=== PATIENT | female | born 1975 | race Caucasian/White ===

== ENCOUNTER → 2021-08-07 12:13 | Outpatient (CLI) | payer BC, SELFPAY ==
[2021-08-08 19:23] LABS: Alanine Aminotransferase 25 IU/L (<35); Albumin 4.2 g/dL (3.5-5.0); Albumin Globulin Ratio 1.4 (1.0-2.8); Alkaline Phosphatase 89 U/L (38-126); Aspartate Aminotransferase 29 IU/L (14-36); BUN Creatinine Ratio 21.3 (6-22); Bilirubin Total 0.4 mg/dL (0.2-1.3); Blood Urea Nitrogen 13 mg/dL (7-17); Calcium 9.8 mg/dL (8.4-10.2); Carbon Dioxide 29 mmol/L (22-32); Chloride 103 mmol/L (98-107); Cholesterol 170 mg/dL (140-199); Estimated Glomerular Filt Rate > 60.0 mL/min (>60); Globulin 3.1 g/dL (1.7-4.1); Glucose 88 mg/dL (70-100); HDL Cholesterol 36 mg/dL (40-60); HEMOLYSIS 16 (0-50); LDL Cholesterol Calculated 105 mg/dL (<100); Sodium 141 mmol/L (137-145); Total Protein 7.3 g/dL (6.3-8.2); Triglycerides 146 mg/dL (35-150)
[2021-08-08 19:45] LABS: Add Manual Diff / Slide Review NO; Basophils Absolute Auto 0 /uL (0-100); Basophils Percent Auto 0.2 % (0-2); Eosinophils Absolute Auto 200 /uL (0-450); Hematocrit 40.2 % (36-46); Hemoglobin 13.4 g/dL (12.0-16.0); Lymphocytes Absolute Auto 2200 /uL (1100-4500); Lymphocytes Percent Auto 26.6 % (25-40); Mean Corpuscular HGB Conc 33.3 % (30-36); Mean Corpuscular Hemoglobin 30.7 PG (26-34); Monocytes Absolute Auto 700 /uL (0-900); Monocytes Percent Auto 8.1 % (3-14); Neutrophils Absolute Auto 5200 /uL (1500-7000); Neutrophils Percent Auto 62.1 % (50-75); Platelet Count 374 X10^3/uL (150-400); Red Blood Cell Count 4.37 X10^6/uL (4.0-5.2); Red Cell Distribution Width 14.1 % (11.6-14.8); White Blood Cell Count 8.4 X10^3/uL (4.5-11.0)
[2021-08-08 19:56] LABS: TSH w/ Reflex to FT4 < 0.02 uIU/mL (0.47-4.68)
[2021-08-08 20:13] LABS: Hemoglobin A1C% w Est Avg Glu 5.3 % (4.0-6.0)
[2021-08-08 20:28] LABS: Free T4, Direct Thyroxine 1.85 ng/dL (0.78-2.19)
== END ==
PROVIDERS: PCP Physician Assistant; Visit Provider Physician Assistant
DX: E03.9 Hypothyroidism, unspecified (principal); I10 Essential (primary) hypertension; R73.03 Prediabetes
CPT/HCPCS: 80053; 80061; 83036; 84439; 84443; 85025

== ENCOUNTER → 2022-06-27 11:25 | Outpatient (CLI) | payer OTHER, MEDICAID, SELFPAY ==
[2022-06-27 20:20] LABS: BUN Creatinine Ratio 24.6 (6-22); Blood Urea Nitrogen 16 mg/dL (7-17); Calcium 9.1 mg/dL (8.4-10.2); Carbon Dioxide 27 mmol/L (22-32); Chloride 103 mmol/L (98-107); Cholesterol 182 mg/dL (140-199); Estimated Glomerular Filt Rate > 60 mL/min (>60); Glucose 116 mg/dL (70-100); HDL Cholesterol 42 mg/dL (40-60); HEMOLYSIS < 15 (0-50); LDL Cholesterol Calculated 110 mg/dL (<100); Potassium 4.1 mmol/L (3.4-5.1); Sodium 141 mmol/L (137-145); Triglycerides 149 mg/dL (35-150)
[2022-06-27 20:31] LABS: Hemoglobin A1C% w Est Avg Glu 5.7 % (4.0-6.0)
[2022-06-27 20:46] LABS: Creatinine Urine Random 86.5 mg/dL
[2022-06-27 20:52] LABS: Microalbumi Creatinin Ratio Ur 76.3 ug/mg CR (<30); Microalbumin Urine Random 6.6 mg/dL (0-1.6); TSH w/ Reflex to FT4 7.18 uIU/mL (0.47-4.68)
== END ==
PROVIDERS: PCP Family Medicine; Visit Provider Family Medicine
DX: E03.9 Hypothyroidism, unspecified (principal); E11.9 Type 2 diabetes mellitus without complications; E78.2 Mixed hyperlipidemia; F32.9 Major depressive disorder, single episode, unspecified; I10 Essential (primary) hypertension
CPT/HCPCS: 80048; 80061; 82043; 82570; 83036; 84439; 84443

== ENCOUNTER → 2022-09-13 12:21 | Outpatient (ROUT) | payer OTHER, MEDICAID, SELFPAY ==
[2022-09-13 12:42] LABS: COVID19 -Nasal RAPID Negative (Negative)
== END ==
PROVIDERS: Surgery; PCP Family Medicine; Visit Provider Physician Assistant
DX: Z01.812 Encounter for preprocedural laboratory examination (principal); Z20.822 Contact with and (suspected) exposure to COVID-19
CPT/HCPCS: 87635

== ENCOUNTER → 2022-09-13 15:27 | Outpatient (CLI) | payer OTHER, MEDICAID, SELFPAY ==
--- NOTE | 2022-09-13 15:28 | DI.MG.S_ITS ---
BILATERAL DIGITAL SCREENING MAMMOGRAM 3D/2D WITH CAD: 09/13/2022 CLINICAL: Routine screening. Comparison is made to exams dated: 05/26/2019 mammogram, 08/22/2016 mammogram, and 11/05/2014 mammogram - outside location. Both breasts are almost entirely fatty (category a/<25% glandular tissue). Current study was also evaluated with a Computer Aided Detection (CAD) system. There is a benign area of fat necrosis in the left breast. There also are benign post operative findings in both breasts. No significant masses, calcifications, or other findings are seen in either breast. There has been no significant interval change. IMPRESSION: BENIGN There is no mammographic evidence of malignancy. A 1 year screening mammogram is recommended. Based on the Tyrer Cuzick model (a risk assessment model) the patient's lifetime risk is 6.0% and her 10 year risk is 1.3%. According to the ACR, ACS, and NCCN guidelines, an annual breast MRI exam along with mammogram is recommended if the patient's lifetime risk is 20% or greater. This exam was interpreted at Station ID: [id number]. NOTE: For mammograms, a report in lay terms will be sent to the patient. Approximately 15% of breast malignancies will not be visualized mammographically. In the management of a palpable breast mass, a negative mammogram must not discourage biopsy of a clinically suspicious lesion. Electronically Signed By: Heather hutchinson/sulma:09/14/2022 11:48:13 letter sent: Normal Exam ACR BI-RADS Category 2: Benign Finding(s) 3342F
== END ==
PROVIDERS: PCP Family Medicine; Referring Provider Family Medicine; Visit Provider Family Medicine
DX: Z12.31 Encounter for screening mammogram for malignant neoplasm of breast (principal); Z20.822 Contact with and (suspected) exposure to COVID-19
CPT/HCPCS: 77063; 77067; 87635; C9803

== ENCOUNTER 2022-09-14 14:25 | Day surgery (SDC) | payer OTHER, MEDICAID, SELFPAY ==
[2022-09-14 14:40] VITALS: BP 170/93; PULSE 86; RESP 14; TEMP 37; O2SAT 98; BMI 41.1
[2022-09-14] MEDS: LACTATED RINGERS 1,000 ML 42 ML IV (14:49)
--- NOTE | 2022-09-14 16:27 | P.HP_ITS ---
History of Present Illness History of Present Illness Chief complaint: SCREENING COLONOSCOPY Narrative: Ms. Babb presents today for a screening colonoscopy. She has never had 1 before. She states she was told by her dad that it was ?really important for her to have 1. She thinks that means that he has had multiple polyps in the past additionally she knows that her sisters have had some ?things? on her there colonoscopies she is really not sure of the specifics. She is had no symptoms of bleeding changes in bowel habits that are concerning. She has had a C- section gallbladder surgery and a tubal ligation. She has diabetes Patient History Medical History (Updated 09/11/22 @ 20:32 by Basil Bates MD) Depression Thoracic back pain Surgical History (Updated 02/09/22 @ 07:33 by Basil Bates MD) History of delivery History of cholecystectomy History of meniscectomy of right knee Family & Social History Social History: household members spouse Tobacco & Substance use: Tobacco type smokeless tobacco Smoking Status Current some day smoker alcohol intake never Substance Use Type does not use Meds Home Medications and Allergies Home Medications Medication Instructions Recorded Confirmed Type naproxen 500 mg tablet 500 mg PO BID PRN pain #60 tabs 08/07/21 09/14/22 Rx duloxetine 60 mg capsule,delayed 60 mg PO BID #180 caps 06/27/22 09/14/22 Rx release atorvastatin 20 mg tablet 20 mg PO BEDTIME #90 tabs 06/28/22 09/14/22 Rx levothyroxine 125 mcg capsule 125 mcg PO DAILY #90 caps 06/28/22 09/14/22 Rx lisinopril 20 1 tab PO DAILY #30 tabs 08/02/22 09/14/22 Rx mg-hydrochlorothiazide 12.5 mg tablet tirzepatide 10 mg/0.5 mL 10 mg (0.5 mL) SUBCUT QWEEK #2 mL 08/18/22 09/14/22 Rx subcutaneous pen injector metformin 500 mg tablet 500 mg PO BID 09/14/22 09/14/22 History Allergies Allergy/AdvReac Type Severity Reaction Status Date / Time No Known Drug Allergies Allergy Verified 09/14/22 14:33 Exam Vital Signs (past 8 hours): - 09/14/22 14:40 Temperature 98.6 F Pulse Rate 86 Respiratory Rate 14 Blood Pressure 170/93 H Pulse Oximetry 98 Oxygen Delivery Method Room Air Oxygen Flow Rate 0 Oxygen Delivery Method Room Air Oxygen Flow Rate 0 Const General: cooperative, healthy appearing and comfortable Nutritional Appearance: obese HENMT Head: normal to inspection Eyes General: appearance normal, both eyes and all related structures Resp Effort & Inspection: normal respiratory effort and able to speak in complete sentences Cardio Pulses: radial pulses present GI Palpation: soft and No tender Assessment & Plan Assessment and plan (1) Colon cancer screening: Status: Acute Assessment & Plan narrative: I discussed the risks benefits and alternatives of a screening colonoscopy including but not limited to inability to complete the exam and perforation of the colon Ms. Anaya understands and would like to proceed. Time Spent With Patient Critical Care time: I spent a total of [] minutes of critical care time on this patient's care today; this time is exclusive of procedural time.
--- NOTE | 2022-09-14 17:08 | PM.OP.COLON ---
Procedure & Clinicians Study performed: Colonoscopy Same procedure as scheduled: Yes Indications: Screening Surgeon: Suki Corral Procedure Notes Procedure in detail: Patient was taken to the endoscopy suite and placed in left lateral decubitus position. A time-out. Monitored anesthetic care was provided. A digital rectal exam was performed the colonoscope was introduced into the anal canal and advanced through the colon to the cecum pressure maneuver was required to enter into cecum. Photograph was taken of the appendiceal orifice the scope was then withdrawn slowly throughout the colon no mucosal abnormalities were seen withdrawal time was 12 minutes. In the absence of any family history of colon cancer or the development of any alarming symptoms follow-up may be 10 years
[2022-09-14 17:09] VITALS: BP 123/72; PULSE 79; RESP 21; TEMP 36.4; O2SAT 99
[2022-09-14 17:13] VITALS: BP 126/76; PULSE 78; RESP 13; O2SAT 100
[2022-09-14 17:21] VITALS: BP 142/86; PULSE 79; RESP 22; O2SAT 100
[2022-09-14 17:25] VITALS: BP 138/86; PULSE 72; RESP 13; O2SAT 100
[2022-09-14 17:27] VITALS: BP 125/73; PULSE 73; RESP 14; TEMP 36.4; O2SAT 100
== END 2022-09-14 17:45 | disposition home or self-care (01) ==
PROVIDERS: PCP Family Medicine; Referring Provider Surgery; Visit Provider Surgery
PROC: 0DJD8ZZ Inspection of Lower Intestinal Tract, Via Natural or Artificial Opening Endoscopic (ICD-10-PCS; CPT 45378; principal; 2022-09-14 15:15)
DX: Z12.11 Encounter for screening for malignant neoplasm of colon (principal)
CPT/HCPCS: 45378; J2704

== ENCOUNTER → 2022-11-19 13:25 | Outpatient (CLI) | payer OTHER, MEDICAID, SELFPAY ==
[2022-11-19 19:28] LABS: Add Manual Diff / Slide Review NO; Basophils Absolute Auto 0 /uL (0-100); Basophils Percent Auto 0.3 % (0-2); Eosinophils Absolute Auto 100 /uL (0-450); Eosinophils Percent Auto 1.3 % (2-4); Hematocrit 40.3 % (36-46); Hemoglobin 13.4 g/dL (12.0-16.0); Lymphocytes Absolute Auto 2100 /uL (1100-4500); Lymphocytes Percent Auto 18.6 % (25-40); Mean Corpuscular HGB Conc 33.3 % (30-36); Mean Corpuscular Hemoglobin 30.2 PG (26-34); Mean Corpuscular Volume 90.7 fL (80-100); Monocytes Absolute Auto 800 /uL (0-900); Monocytes Percent Auto 7.5 % (3-14); Neutrophils Absolute Auto 8200 /uL (1500-7000); Neutrophils Percent Auto 72.3 % (50-75); Platelet Count 381 X10^3/uL (150-400); Red Blood Cell Count 4.45 X10^6/uL (4.0-5.2); Red Cell Distribution Width 15.3 % (11.6-14.8); White Blood Cell Count 11.3 X10^3/uL (4.5-11.0)
[2022-11-19 19:40] LABS: Cholesterol 179 mg/dL (140-199); HDL Cholesterol 53 mg/dL (40-60); LDL Cholesterol Calculated 99 mg/dL (<100); Triglycerides 135 mg/dL (35-150)
[2022-11-19 19:42] LABS: BUN Creatinine Ratio 25.4 (6-22); Blood Urea Nitrogen 17 mg/dL (7-17); Carbon Dioxide 28 mmol/L (22-32); Chloride 101 mmol/L (98-107); Estimated Glomerular Filt Rate > 60 mL/min (>60); Glucose 74 mg/dL (70-100); HEMOLYSIS < 15 (0-50); Potassium 4.1 mmol/L (3.4-5.1); Sodium 138 mmol/L (137-145)
[2022-11-19 20:02] LABS: TSH w/ Reflex to FT4 3.66 uIU/mL (0.47-4.68)
[2022-11-19 20:47] LABS: Hemoglobin A1C% w Est Avg Glu 5.1 % (4.0-6.0)
== END ==
PROVIDERS: PCP Family Medicine; Visit Provider Family Medicine
DX: E03.9 Hypothyroidism, unspecified (principal); E11.9 Type 2 diabetes mellitus without complications; E66.01 Morbid (severe) obesity due to excess calories; E78.2 Mixed hyperlipidemia; F32.9 Major depressive disorder, single episode, unspecified; I10 Essential (primary) hypertension; Z68.41 Body mass index [BMI] 40.0-44.9, adult
CPT/HCPCS: 80048; 80061; 83036; 84443; 85025

== ENCOUNTER → 2023-06-19 11:08 | Outpatient (CLI) | payer OTHER, MEDICAID, SELFPAY ==
[2023-06-19 20:32] LABS: Alanine Aminotransferase 15 IU/L (<35); Albumin 3.9 g/dL (3.5-5.0); Albumin Globulin Ratio 1.2 (1.0-2.8); Alkaline Phosphatase 82 U/L (38-126); Aspartate Aminotransferase 22 IU/L (14-36); Bilirubin Total 0.5 mg/dL (0.2-1.3); Blood Urea Nitrogen 16 mg/dL (7-17); Calcium 8.5 mg/dL (8.4-10.2); Carbon Dioxide 23 mmol/L (22-32); Chloride 105 mmol/L (98-107); Cholesterol 189 mg/dL (140-199); Estimated Glomerular Filt Rate > 60 mL/min (>60); Globulin 3.3 g/dL (1.7-4.1); Glucose 86 mg/dL (70-100); HDL Cholesterol 52 mg/dL (40-60); HEMOLYSIS < 15 (0-50); LDL Cholesterol Calculated 119 mg/dL (<100); Potassium 3.7 mmol/L (3.4-5.1); Sodium 137 mmol/L (137-145); Total Protein 7.2 g/dL (6.3-8.2); Triglycerides 91 mg/dL (35-150)
[2023-06-19 20:35] LABS: Hemoglobin A1C% w Est Avg Glu 5.1 % (4.0-6.0)
[2023-06-19 20:59] LABS: Creatinine Urine Random 248.3 mg/dL
[2023-06-19 21:07] LABS: Microalbumi Creatinin Ratio Ur 7.6 ug/mg CR (<30); Microalbumin Urine Random 1.9 mg/dL (0-1.6)
[2023-06-19 22:36] LABS: Free T4, Direct Thyroxine 0.76 ng/dL (0.78-2.19)
== END ==
PROVIDERS: PCP Family Medicine; Visit Provider Family Medicine
DX: E03.9 Hypothyroidism, unspecified (principal); E11.9 Type 2 diabetes mellitus without complications; E78.2 Mixed hyperlipidemia; I10 Essential (primary) hypertension
CPT/HCPCS: 80053; 80061; 82043; 82570; 83036; 84439; 84443

== ENCOUNTER 2023-09-24 17:49 | Inpatient (IN) | payer OTHER, MEDICAID, SELFPAY ==
[2023-09-24] VITALS (20 sets, daily range): BP systolic 99–161; BP diastolic 58–92; PULSE 97–123; RESP 9–31; TEMP 36.5–37.1; O2SAT 85–100; BMI 35.6
[2023-09-24] MEDS: KETOROLAC 30 MG/ML VIAL 15 MG IV (18:12)
[2023-09-24] MEDS: HYDROMORPHONE 1 MG INJ IV (18:31)
[2023-09-24 18:36] LABS: Add Manual Diff / Slide Review NO; Basophils Absolute Auto 0 /uL (0-100); Basophils Percent Auto 0.1 % (0-2); Eosinophils Absolute Auto 0 /uL (0-450); Eosinophils Percent Auto 0.2 % (2-4); Hematocrit 41.5 % (36-46); Lymphocytes Absolute Auto 600 /uL (1100-4500); Lymphocytes Percent Auto 4.1 % (25-40); Mean Corpuscular HGB Conc 33.8 % (30-36); Mean Corpuscular Hemoglobin 31.5 PG (26-34); Mean Corpuscular Volume 93.2 fL (80-100); Monocytes Absolute Auto 100 /uL (0-900); Monocytes Percent Auto 0.5 % (3-14); Neutrophils Absolute Auto 14600 /uL (1500-7000); Neutrophils Percent Auto 95.1 % (50-75); Platelet Count 317 X10^3/uL (150-400); Red Blood Cell Count 4.45 X10^6/uL (4.0-5.2); Red Cell Distribution Width 13.6 % (11.6-14.8); White Blood Cell Count 15.4 X10^3/uL (4.5-11.0)
--- NOTE | 2023-09-24 18:46 | ED.GENADULT ---
HPI - General Adult General Chief complaint: Urogenital-Female Stated complaint: kidney stone/pyelo Time Seen by Provider: 09/24/23 17:56 Source: patient Mode of arrival: Ambulatory History of Present Illness HPI narrative: Patient is a 48-year-old female. Sent to the emergency department for evaluation of left lower back/left flank pain. Patient states that this morning she started have lower abdominal discomfort. She originally thought that it was a related issue for then she had a fairly sudden onset of left lower back pain. No fevers. No vomiting. She is never had a kidney stone in the past. She did receive fentanyl by EMS prior to arrival. She states that the discomfort was somewhat worse with palpation. No numbness or tingling in her lower extremities. Related Data Previous Rx's Medication Instructions Recorded atorvastatin 40 mg tablet (Lipitor) 40 mg PO BEDTIME #90 tabs 11/20/22 bupropion HCl 100 mg tablet,12 hr 100 mg PO Q12H #90 ea 06/03/23 sustained-release clotrimazole 1 % topical cream 1 applic topical BID #30 grams 06/21/23 atorvastatin 20 mg tablet (Lipitor) 20 mg PO BEDTIME #90 tabs 07/04/23 conj estrogen-medroxyprogesterone 1 tab PO DAILY #90 tabs 07/04/23 0.3 mg-1.5 mg tablet (Prempro) levothyroxine 175 mcg capsule 175 mcg PO DAILY #90 caps 07/04/23 tirzepatide 15 mg/0.5 mL 15 mg (0.5 mL) SUBCUT QWEEK #2 mL 07/30/23 subcutaneous pen injector lisinopril 20 1 tab PO DAILY #90 tabs 08/06/23 mg-hydrochlorothiazide 12.5 mg tablet Allergies Allergy/AdvReac Type Severity Reaction Status Date / Time No Known Drug Allergies Allergy Verified 06/21/23 16:22 Review of Systems Constitutional Constitutional: Reports system reviewed and no additional complaints, except as documented Gastrointestinal Gastrointestinal: Reports system reviewed and no additional complaints, except as documented Genitourinary Genitourinary: Reports system reviewed and no additional complaints, except as documented Musculoskeletal Musculoskeletal: Reports system reviewed and no additional complaints, except as documented Integumentary/Breasts Skin/Breast: Reports system reviewed and no additional complaints, except as documented Hematologic/Lymphatic On Anticoagulants: No Patient History Medical History Depression Thoracic back pain Surgical History History of delivery History of cholecystectomy History of meniscectomy of right knee Social History marital status: unmarried,living together number of children: 4 household members: spouse pets and animals: Yes occupational status: employed seatbelt use: always do you feel safe at home: Yes Smoking Status: Current some day smoker alcohol intake: never substance use type: does not use additional social history: from [place]. recently in [place]. Family has been on [place] for 40 yrs works at [employer] [facility]03/2023 Smoking Status: Current some day smoker tobacco type: vaping alcohol intake frequency: a few times a week Alcohol type: wine Substance Use Type: does not use Exam Initial Vital Signs Initial Vital Signs: Vital Signs Blood Pressure 161/92 H 09/24/23 17:52 HENMT Head: normal to inspection and normocephalic Resp Effort & Inspection: normal respiratory effort Cardio Rate: regular rate GI Inspection: normal to inspection and non-distended Skin General: no rashes or lesions noted Neuro General: patient alert, patient awake and moves all extremities Extrem General: normal to inspection Course Orders Ordered: ED Orders 09/24/23 18:24 Complete Blood Count AUTO DIFF Stat Comprehensive Metabolic Panel Stat Lactate (Lactic Acid) Stat Lipase Stat Procalcitonin Stat 09/24/23 18:46 CT abdomen pelvis w con Stat 09/24/23 20:35 Consult to Urology Stat 09/24/23 20:39 Blood Culture Stat 09/24/23 20:46 Urine Culture Stat Urine Microscopic Stat Sodium Chloride (Normal Saline 0.9%) 1,000 mls @ 125 mls/hr IV CONT RUBIA Discontinued Medications Hydromorphone HCl (Hydromorphone 1 Mg Inj) 1 mg IV NOW ONE Stop: 09/24/23 18:27 Last Admin: 09/24/23 18:31 Dose: 1 mg Documented By: PROMISE Ceftriaxone Sodium 2,000 mg/ (Sodium Chloride) 100 mls @ 200 mls/hr IV NOW ONE Stop: 09/24/23 20:15 Last Admin: 09/24/23 20:27 Dose: 200 mls/hr Documented By: TABATHA Ketorolac Tromethamine (Ketorolac 30 Mg/Ml Vial) 15 mg IV NOW ONE Stop: 09/24/23 17:57 Last Admin: 09/24/23 18:08 Dose: Not Given Documented By: MARY Ketorolac Tromethamine (Ketorolac 30 Mg/Ml Vial) 15 mg IV NOW ONE Stop: 09/24/23 17:57 Last Admin: 09/24/23 18:12 Dose: 15 mg Documented By: PROMISE Vital Signs Vital signs: Vital Signs - 8 hr 09/24/23 17:52 09/24/23 17:53 09/24/23 17:55 Temperature 97.7 F Pulse Rate 104 H 103 H Respiratory Rate 22 Blood Pressure 161/92 H 161/92 H Pulse Oximetry 97 96 Oxygen Delivery Method Room Air 09/24/23 18:03 09/24/23 18:03 09/24/23 18:30 Temperature Pulse Rate 98 H Respiratory Rate Blood Pressure 129/71 129/59 L Pulse Oximetry 100 Oxygen Delivery Method 09/24/23 18:30 09/24/23 19:00 09/24/23 19:01 Temperature Pulse Rate 97 H 123 H 118 H Respiratory Rate 21 30 H 21 Blood Pressure Pulse Oximetry 99 98 99 Oxygen Delivery Method 09/24/23 19:01 Temperature Pulse Rate Respiratory Rate Blood Pressure 141/84 H Pulse Oximetry Oxygen Delivery Method Medical Decision Making Lab Data Lab results reviewed: Yes I reviewed the patient's lab results. 09/24/23 18:24 09/24/23 18:24 Labs: Lab Results 09/24/23 09/24/23 Range/Units 18:24 20:46 WBC 15.4 H (4.5-11.0) X10^3/uL RBC 4.45 (4.0-5.2) X10^6/uL Hgb 14.0 (12.0-16.0) g/dL Hct 41.5 (36-46) % MCV 93.2 (80-100) fL MCH 31.5 (26-34) PG MCHC 33.8 (30-36) % RDW 13.6 (11.6-14.8) % Plt Count 317 (150-400) X10^3/uL Neut % (Auto) 95.1 H (50-75) % Lymph % (Auto) 4.1 L (25-40) % [place] % (Auto) 0.5 L (3-14) % Eos % (Auto) 0.2 L (2-4) % Baso % (Auto) 0.1 (0-2) % Neut # (Auto) 79959 H (9886-6223) /uL Lymph # (Auto) 600 L (6118-0828) /uL [place] # (Auto) 100 (0-900) /uL Eos # (Auto) 0 (0-450) /uL Baso # (Auto) 0 (0-100) /uL Sodium 136 L (137-145) mmol/L Potassium 3.9 (3.4-5.1) mmol/L Chloride 105 (98-107) mmol/L Carbon Dioxide 21 L (22-32) mmol/L BUN 16 (7-17) mg/dL Creatinine 0.74 (0.52-1.04) mg/dL Estimated GFR > 60 (>60) mL/min BUN/Creatinine Ratio 21.6 (6-22) Glucose 98 (70-100) mg/dL Calcium 9.8 (8.4-10.2) mg/dL Total Bilirubin 1.3 (0.2-1.3) mg/dL AST 34 (14-36) IU/L ALT 19 (<35) IU/L Alkaline Phosphatase 81 (38-126) U/L Total Protein 8.2 (6.3-8.2) g/dL Albumin 4.5 (3.5-5.0) g/dL Globulin 3.7 (1.7-4.1) g/dL Albumin/Globulin Ratio 1.2 (1.0-2.8) Lipase 105 (23-300) U/L Urine RBC 10-30/hpf H (0-5/HPF) Urine WBC 30-100/hpf H (0-5/HPF) Ur Squamous Epith Cells 1-5 /hpf (0-5/HPF) Urine Bacteria Many (>30) H (None) Ur Culture Indicated? Cult not indicated Urine Dip Bedside Urine Glucose Negative Bedside Urine Bilirubin - Negative Bedside Urine Ketone ++ 40 Urine Specific [place] 1.015 Bedside Urine Occult Blood +++ Bedside Urine pH 6 Bedside Urine Protein +/- 15 Bedside Urine Urobilinogen - Negative Bedside Urine Nitrite + Positive Bedside Urine Leukocytes + 70 Esterase Point of care testing: Urine Dip Bedside Urine Glucose Negative Bedside Urine Bilirubin - Negative Bedside Urine Ketone ++ 40 Urine Specific [place] 1.015 Bedside Urine Occult Blood +++ Bedside Urine pH 6 Bedside Urine Protein +/- 15 Bedside Urine Urobilinogen - Negative Bedside Urine Nitrite + Positive Bedside Urine Leukocytes + [address] scan - abdomen/pelvis: Radiologist's Impression: PROCEDURE: CT ABDOMEN PELVIS W CON INDICATIONS: L flank pain eval for stone TECHNIQUE: After the administration of IV contrast, axial sections were acquired from the lung bases to the pubic symphysis. Coronal and sagittal reformats were performed. For radiation dose reduction, the following was used: automated exposure control, adjustment of mA and/or kV according to patient size. COMPARISON: None. FINDINGS: Image quality: Excellent. Lung bases: Unremarkable. Small hiatal hernia. Heart: No significant findings. ABDOMEN: Liver: No solid mass. Gallbladder: Surgically removed. Biliary ducts: No biliary dilation. Pancreas: No ductal dilation. Spleen: Size is within normal limits. Adrenal Glands: No adrenal nodules. Kidneys and Ureters: Moderate left hydronephrosis and perinephric stranding. There is a 4 mm stone in the proximal left ureter. Several small nonobstructive stones are seen bilaterally. No right hydronephrosis. No solid mass. No complex renal cystic lesion which requires follow up. Stomach and Bowel: Normal colonic caliber, without significant wall thickening. Peritoneum: No abnormal intraperitoneal fluid. No free air. Ventral Wall: No hernia. Abdominal Nodes: No retroperitoneal or mesenteric adenopathy by size criteria. Vessels: Aorta and inferior vena cava are normal in size. PELVIS: Pelvic Organs: Unremarkable. Bladder: Unremarkable. Pelvic Nodes: No enlarged lymph nodes. Miscellaneous: No inguinal hernias are seen. Bones: Mild levoscoliosis. Degenerative changes noted in lumbar spine. There is grade 1 anterolisthesis of L4 on L5. IMPRESSION: 1. A 4 mm proximal left ureteral stone causing moderate left hydronephrosis. 2. Bilateral nonobstructive renal calculi. [facility] Narrative Medical decision making narrative: Patient initially arrived afebrile however was tachycardic and tachypneic. This persisted despite pain medication. Initially had a leukocytosis. I initially did not start antibiotics until her urinalysis resulted which then showed findings that were consistent with a UTI. This is when antibiotics were administered. Lactate was ordered. Cultures were ordered. CT scan shows proximal left-sided ureteral stone with hydro. I did discuss the case with Dr. Barber on-call for Urology who recommended the patient be admitted to the hospitalist service with plan of intervention tomorrow. I did discuss this with the patient. She expressed understanding and agreement. I then discussed the case with Dr. Mariano who will admit for further evaluation and treatment. Discharge Plan Departure Patient Disposition: Admitted As Inpatient Clinical Impression: Pyelonephritis, Left ureteral stone Admit Date/Time: 09/24/23 21:01
[2023-09-24 18:49] LABS: Lipase 105 U/L (23-300)
[2023-09-24 18:50] LABS: Alanine Aminotransferase 19 IU/L (<35); Albumin 4.5 g/dL (3.5-5.0); Albumin Globulin Ratio 1.2 (1.0-2.8); Alkaline Phosphatase 81 U/L (38-126); Aspartate Aminotransferase 34 IU/L (14-36); BUN Creatinine Ratio 21.6 (6-22); Bilirubin Total 1.3 mg/dL (0.2-1.3); Blood Urea Nitrogen 16 mg/dL (7-17); Calcium 9.8 mg/dL (8.4-10.2); Carbon Dioxide 21 mmol/L (22-32); Chloride 105 mmol/L (98-107); Estimated Glomerular Filt Rate > 60 mL/min (>60); Globulin 3.7 g/dL (1.7-4.1); Glucose 98 mg/dL (70-100); HEMOLYSIS 146 (0-50); Potassium 3.9 mmol/L (3.4-5.1); Sodium 136 mmol/L (137-145); Total Protein 8.2 g/dL (6.3-8.2)
[2023-09-24] MEDS: cefTRIAXone 2,000 MG in SODIUM CHLORIDE 0.9% 100 ML 200 MG IV (20:27)
[2023-09-24 20:52] LABS: Bacteria Urine Many (>30); Culture Indicated Urine Cult Not Indicated; RBC Urine 10-30/HPF (0-5/HPF); Squamous Epithelial Cell Urine 1-5 /HPF (0-5/HPF); WBC Urine 30-100/HPF (0-5/HPF)
--- NOTE | 2023-09-24 21:22 | PC.NURSE ---
Provider ordered blood cultures after patient received rocephin, Provider aware,
[2023-09-24] MEDS: SODIUM CHLORIDE 0.9% 1,000 ML 125 ML IV (21:45)
[2023-09-24 22:02] LABS: Procalcitonin 0.11 ng/mL (<0.5)
[2023-09-24] MEDS: HYDROMORPHONE 0.5 MG INJ IV (22:21)
[2023-09-24] MEDS: buPROPion SR 100 MG TAB PO (22:22)
[2023-09-24] MEDS: SODIUM CHLORIDE 0.9% 1,000 ML 100 ML IV (22:24)
[2023-09-24] MEDS: OXYCODONE IR 5 MG TABLET PO (23:39)
--- NOTE | 2023-09-24 23:55 | PC.NURSE ---
Pt.was admitted to room 202 by Julian admitting RN. Diagnosed with UTI & Renal calculi. Medicated with Dilaudid 0.5 mg. IVP when admiited to the floor. After over an she C/O pain. Medicated with 5 mg. of Oxycodone, pateint oriented to her room & encouraged to call for assistance whenever she needed to get up to the bathroom. Call light with in reached & denies any recent fall for the past 3 months at home , bed alarm not activated. Will continue plan of care & monitor.
[2023-09-25] VITALS (20 sets, daily range): BP systolic 95–123; BP diastolic 51–77; PULSE 71–120; RESP 9–18; TEMP 35.6–37.4; O2SAT 93–100; BMI 35.2
--- NOTE | 2023-09-25 | DI.RAD.S_ITS ---
PROCEDURE: XR KUB INDICATIONS: Left ureteral calculus TECHNIQUE: One view of the abdomen acquired. COMPARISON: [facility], CT, CT ABDOMEN PELVIS W CON, 09/24/2023, 19:23. FINDINGS: Surgical changes and devices: Cholecystectomy clips. Bowel: Bowel gas pattern is normal. Soft tissues: No suspicious abdominal calcifications. No definitive calcifications are identified overlying the left renal shadow or the expected course of the ureter. It is noted there are significant fluid and stool filled bowel loops. It is noted previous calcification within the proximal left ureter as well as punctate calcification within the left kidney. Calcification is noted overlying the right kidney of corresponding to prior CT. Visualized solid organ contours appear normal in size. Bones: No suspicious bony lesions. Leftward scoliotic curvature. IMPRESSION: Calcification noted overlying the right kidney. Calcifications overlying the left kidney/ureter are not visualized secondary to significant overlying fluid and stool filled bowel loops. Dictated by: Addie Maguire M.D. on 09/25/2023 at 8:34 Approved by: Addie Maguire M.D. on 09/25/2023 at 8:35
--- NOTE | 2023-09-25 | DI.RAD.S_ITS ---
PROCEDURE: XR ABDOMEN 1V INDICATIONS: LEFT STENT PLACEMENT TECHNIQUE: Single fluoroscopic intra-operative image acquired by the Urology service. COMPARISON: None. FINDINGS: IMPRESSION: Single fluoroscopic view demonstrates a double-J ureteral stent projected over the left mid abdomen. Dictated by: Linette Grove M.D. on 09/25/2023 at 17:04 Approved by: Linette Grove M.D. on 09/25/2023 at 17:05
--- NOTE | 2023-09-25 00:15 | P.HP_ITS ---
History of Present Illness History of Present Illness Chief complaint: kidney stone/pyelo Narrative: 48 years old female with history of hypertension, hyperlipidemia, hypothyroidism, depression, diabetes mellitus type 2, presented to the ER with left lower back/flank pain since this morning. Denies any fever, nausea, vomiting or dysuria. Never had the symptoms before. In the ER she was found to have kidney stones and was decided to admit for further management. In the ER she was given ceftriaxone 2 g IV, Toradol, Dilaudid and fluids. Initial labs shows WBC 15.4, H&H 11.3,/33.9, platelets 389, creatinine 0.74, lactic acid 1.5, blood glucose 98, UA positive for UTI. Abdominal CT scan shows 4 mm proximal left ureteral stone causing moderate left hydronephrosis. Bilateral nonobstructive renal calculi. [facility] Medical History Depression Thoracic back pain Surgical History History of delivery History of cholecystectomy History of meniscectomy of right knee Social History marital status: unmarried,living together number of children: 4 household members: spouse pets and animals: Yes occupational status: employed seatbelt use: always do you feel safe at home: Yes Smoking Status: Current some day smoker alcohol intake: never substance use type: does not use additional social history: from [place]. recently in [place]. [place] been on [place] [address] [place] works at [employer]03/2023 [facility] Home Medications and Allergies Home Medications Medication Instructions Recorded Confirmed Type atorvastatin 40 mg tablet (Lipitor) 40 mg PO BEDTIME #90 tabs 11/20/22 09/24/23 Rx bupropion HCl 100 mg tablet,12 hr 100 mg PO Q12H #90 ea 06/03/23 09/24/23 Rx sustained-release conj estrogen-medroxyprogesterone 1 tab PO DAILY #90 tabs 07/04/23 09/24/23 Rx 0.3 mg-1.5 mg tablet (Prempro) levothyroxine 175 mcg capsule 175 mcg PO DAILY #90 caps 09/21/23 12/12/23 Rx tirzepatide 15 mg/0.5 mL 15 mg (0.5 mL) SUBCUT QWEEK #2 mL 07/30/23 09/24/23 Rx subcutaneous pen injector lisinopril 20 1 tab PO DAILY #90 tabs 08/06/23 09/24/23 Rx mg-hydrochlorothiazide 12.5 mg tablet Allergies Allergy/AdvReac Type Severity Reaction Status Date / Time No Known Drug Allergies Allergy Verified 06/21/23 16:22 Review of Systems Review of Systems ROS: Yes All systems reviewed with the patient and are negative except as otherwise documented Constitutional Constitutional: Reports as per HPI and Reports system reviewed and no additional complaints, except as documented Eyes Eyes: Reports as per HPI and Reports system reviewed and no additional complaints, except as documented ENT Ears, Nose, Mouth, and Throat: Yes as per HPI and Yes system reviewed and no additional complaints, except as documented Cardiovascular Cardiovascular: Reports system reviewed and no additional complaints, except as documented Respiratory Respiratory: Reports system reviewed and no additional complaints, except as documented Gastrointestinal Gastrointestinal: Reports system reviewed and no additional complaints, except as documented Genitourinary Genitourinary: Reports system reviewed and no additional complaints, except as documented Musculoskeletal Musculoskeletal: Reports system reviewed and no additional complaints, except as documented, Reports abnormal gait and Reports numbness Neurologic Neurologic: Reports system reviewed and no additional complaints, except as documented, Reports abnormal gait, Reports confusion and Reports numbness Psychiatric Psychiatric: Reports system reviewed and no additional complaints, except as documented and Reports confusion Exam Vital Signs (past 8 hours): - 09/24/23 17:52 09/24/23 17:53 09/24/23 17:55 Temperature 97.7 F Pulse Rate 104 H 103 H Respiratory Rate 22 Blood Pressure 161/92 H 161/92 H Pulse Oximetry 97 96 Oxygen Delivery Method Room Air Oxygen Flow Rate 09/24/23 18:03 09/24/23 18:03 09/24/23 18:30 Temperature Pulse Rate 98 H Respiratory Rate Blood Pressure 129/71 129/59 L Pulse Oximetry 100 Oxygen Delivery Method Oxygen Flow Rate 09/24/23 18:30 09/24/23 19:00 09/24/23 19:01 Temperature Pulse Rate 97 H 123 H 118 H Respiratory Rate 21 30 H 21 Blood Pressure Pulse Oximetry 99 98 99 Oxygen Delivery Method Oxygen Flow Rate 09/24/23 19:01 09/24/23 19:33 09/24/23 19:34 Temperature Pulse Rate 105 H 106 H Respiratory Rate 29 H 24 Blood Pressure 141/84 H Pulse Oximetry 97 97 Oxygen Delivery Method Oxygen Flow Rate 09/24/23 19:34 09/24/23 20:02 09/24/23 20:03 Temperature Pulse Rate 114 H 110 H Respiratory Rate 16 Blood Pressure 141/77 H Pulse Oximetry 85 L 96 Oxygen Delivery Method Oxygen Flow Rate 09/24/23 20:03 09/24/23 20:30 09/24/23 20:30 Temperature Pulse Rate 109 H Respiratory Rate 17 Blood Pressure 128/72 129/74 Pulse Oximetry 94 Oxygen Delivery Method Oxygen Flow Rate 09/24/23 21:00 09/24/23 21:00 09/24/23 21:29 Temperature 97.7 F Pulse Rate 109 H Respiratory Rate 9 L Blood Pressure 104/58 L Pulse Oximetry 97 Oxygen Delivery Method Oxygen Flow Rate 09/24/23 21:30 09/24/23 21:30 09/24/23 21:48 Temperature Pulse Rate 113 H 120 H Respiratory Rate 18 27 H Blood Pressure 99/61 Pulse Oximetry 100 100 Oxygen Delivery Method Room Air Oxygen Flow Rate 09/24/23 21:48 09/24/23 22:00 09/24/23 22:04 Temperature Pulse Rate 115 H 120 H Respiratory Rate 17 31 H Blood Pressure 121/77 Pulse Oximetry 98 99 Oxygen Delivery Method Oxygen Flow Rate 09/24/23 22:04 09/24/23 22:22 09/24/23 23:22 Temperature 97.9 F 98.8 F Pulse Rate 118 H 122 H Respiratory Rate 18 16 Blood Pressure 108/68 108/69 100/76 Pulse Oximetry 96 95 Oxygen Delivery Method Oxygen Flow Rate 0 0 Oxygen Delivery Method Room Air Oxygen Flow Rate 0 Const General: cooperative, comfortable and well developed Orientation: alert and oriented x3 HENMT Head: normal to inspection, normocephalic and atraumatic Face and sinus: normal facial exam Mouth: oral mucosae normal and moist mucous membranes Throat: posterior oropharynx normal Eyes General: appearance normal, both eyes and all related structures Pupils: PERRL EOM: EOM intact bilaterally Neck Neck: normal visual inspection and full ROM Chest Chest: normal inspection of the chest Resp Effort & Inspection: normal respiratory effort and able to speak in complete sentences Auscultation: clear to auscultation bilaterally Cardio Palpation: normal PMI Rate: regular rate Rhythm: regular rhythm Heart Sounds: S1 normal and S2 normal GI Inspection: normal to inspection Palpation: soft and no hepatosplenomegaly Auscultation: normal bowel sounds Skin General: no rashes or lesions noted Lesions: no lesions Rashes: no rashes Trauma: no lacerations or abrasions Neuro General: patient alert, patient awake, patient oriented x3 and no focal motor deficits Cranial Nerves: CN's II-XI intact bilaterally Cognition: normal cognition Speech: speech normal Gait: normal gait Motor: muscle tone normal throughout Sensory Exam: no sensory deficits noted Extrem General: full ROM and no calf tenderness Psych Appearance: grossly normal Mental Status: mental status grossly normal Speech and Movement: speech and movement normal Objective Labs 09/24/23 18:24 09/24/23 18:24 Labs: Laboratory Results - last 24 hr 09/24/23 09/24/23 18:24 20:46 WBC 15.4 H RBC 4.45 Hgb 14.0 Hct 41.5 MCV 93.2 MCH 31.5 MCHC 33.8 RDW 13.6 Plt Count 317 Neut % (Auto) 95.1 H Lymph % (Auto) 4.1 L [place] % (Auto) 0.5 L Eos % (Auto) 0.2 L Baso % (Auto) 0.1 Neut # (Auto) 25714 H Lymph # (Auto) 600 L [place] # (Auto) 100 Eos # (Auto) 0 Baso # (Auto) 0 Sodium 136 L Potassium 3.9 Chloride 105 Carbon Dioxide 21 L BUN 16 Creatinine 0.74 Estimated GFR > 60 BUN/Creatinine Ratio 21.6 Glucose 98 Lactate 2.0 Calcium 9.8 Total Bilirubin 1.3 AST 34 ALT 19 Alkaline Phosphatase 81 Total Protein 8.2 Albumin 4.5 Globulin 3.7 Albumin/Globulin Ratio 1.2 Lipase 105 Procalcitonin 0.11 Urine RBC 10-30/hpf H Urine WBC 30-100/hpf H Ur Squamous Epith Cells 1-5 /hpf Urine Bacteria Many (>30) H Ur Culture Indicated? Cult not indicated Assessment & Plan Assessment and plan (1) Left ureteral stone: Status: Acute Plan: IV fluids Pain medications and antiemetics as needed Urology consult N.p.o. after midnight (2) Pyelonephritis: Problem details: Meets the criteria for sepsis Status: Acute Plan: Continue ceftriaxone follow-up on the urine culture (3) Primary hypertension: Status: Acute Plan: Hold lisinopril for now Hydralazine as needed (4) Hyperlipidemia, mixed: Status: Acute Plan: Restart atorvastatin (5) Diabetes type 2, controlled: Qualifiers: Diabetes mellitus detention insulin use: without termination clerk use Diabetes mellitus complication status: without complication Qualified Code(s): E11.9 - Type 2 diabetes mellitus without complications Status: Acute Plan: Monitor blood sugar ACHS SSI (6) Hypothyroidism (acquired): Status: Acute Plan: Restart levothyroxine (7) Depression, major: Qualifiers: Major depression recurrence: recurrent Active/Remission status: c urrently active Major depression episode severity: moderate Qualified Code(s): F33.1 - Major depressive disorder, recurrent, moderate Status: Acute Plan: Restart bupropion Time Spent With Patient Time with patient: 50 to 69 minutes with 50% spent counseling/coordinating care Quality VTE Deep Vein Thrombosis/Pulmonary Embolism Present on Admission: No MIPS - Admit I confirm the patient?s Advance Care Plan is present, Code status is documented, Surrogate decision maker is in patient?s record [If Yes, STOP here]: Yes MIPS - Meds 'Current medications' to include all prescriptions, [id number] products, herbals, cannabis/cannabidiol products, and vitamin/mineral/dietary (nutritional) supplements. I have utilized all available resources to obtain, update, or review the patient?s current medications. [If Yes, STOP here]: Yes
[2023-09-25] MEDS: OXYCODONE IR 5 MG TABLET PO ×4 (03:41→20:29)
[2023-09-25] MEDS: SODIUM CHLORIDE 0.9% 1,000 ML 100 ML IV ×2 (04:00→12:12)
[2023-09-25] MEDS: ACETAMINOPHEN 325 MG TABLET 650 MG PO (05:29)
[2023-09-25] MEDS: LEVOTHYROXINE 75 MCG TABLET PO (05:31)
[2023-09-25] MEDS: LEVOTHYROXINE 100 MCG TABLET PO (05:31)
--- NOTE | 2023-09-25 07:53 | PM.CN ---
History of Present Illness Consult details Date Patient Seen: 09/25/23 Time Patient Seen: 07:10 Chief complaint: kidney stone/pyelo Reason for consult: Left Calculus pyelonephritis Narrative: Denise is a 48-year-old female admitted through [facility] ED for further evaluation and management of left pyelonephritis, left ureteral calculus, and signs and symptoms of early urosepsis. She denies previous history of urolithiasis. She does provide history of having had previous UTIs limited to cystitis. She reports this when she awakened yesterday she had cramping like pains in her low midline pelvis reminiscent of menstrual cramps. She notes that she would not had a period for some 6 months. She then began to have severe suprapubic burning that evolved into left flank and abdominal pain prompting her travel to the [facility] ED for further evaluation and management. CT KUB demonstrated a 4 mm proximal to mid left ureteral calculus with associated proximal moderate hydronephrosis and mild left perinephric stranding. Additionally, there were at least 1 nonobstructing calculi seen in each the right, and the left kidney. Preliminary urine culture identifies greater than 100,000 CFU per mL Gram-negative bacilli. Her pain has been controlled. She remains mildly tachycardic and mildly hypotensive. Meds Home Medications and Allergies Home Medications Medication Instructions Recorded Confirmed Type atorvastatin 40 mg tablet (Lipitor) 40 mg PO BEDTIME #90 tabs 11/20/22 09/24/23 Rx bupropion HCl 100 mg tablet,12 hr 100 mg PO Q12H #90 ea 06/03/23 09/24/23 Rx sustained-release conj estrogen-medroxyprogesterone 1 tab PO DAILY #90 tabs 07/04/23 09/24/23 Rx 0.3 mg-1.5 mg tablet (Prempro) levothyroxine 175 mcg capsule 175 mcg PO DAILY #90 caps 07/04/23 09/24/23 Rx tirzepatide 15 mg/0.5 mL 15 mg (0.5 mL) SUBCUT QWEEK #2 mL 07/30/23 09/24/23 Rx subcutaneous pen injector lisinopril 20 1 tab PO DAILY #90 tabs 08/06/23 09/24/23 Rx mg-hydrochlorothiazide 12.5 mg tablet Allergies Allergy/AdvReac Type Severity Reaction Status Date / Time No Known Drug Allergies Allergy Verified 06/21/23 16:22 Review of Systems Review of Systems ROS: Yes All systems reviewed with the patient and are negative except as otherwise documented Exam Vital Signs (past 8 hours): - 09/25/23 00:00 09/25/23 01:00 09/25/23 02:00 Temperature 98.6 F 97.6 F 97.6 F Pulse Rate 120 H 110 H 118 H Respiratory Rate 17 16 16 Blood Pressure 113/67 113/77 114/60 Pulse Oximetry 98 96 97 Oxygen Flow Rate 0 0 0 09/25/23 03:00 09/25/23 04:00 09/25/23 05:00 Temperature 97.6 F 98.3 F 97.8 F Pulse Rate 119 H 118 H 113 H Respiratory Rate 16 16 16 Blood Pressure 100/66 116/63 102/65 Pulse Oximetry 98 98 98 Oxygen Flow Rate 0 09/25/23 06:00 Temperature 98.2 F Pulse Rate 120 H Respiratory Rate 16 Blood Pressure 100/56 L Pulse Oximetry 97 Oxygen Flow Rate 0 Oxygen Delivery Method Room Air Oxygen Flow Rate 0 Narrative Exam Narrative: Well-developed, over nourished female lying in bed, conversive and in no acute distress. Head/neck-sclera clear and pupils are equal and round bilaterally. Neck is without visible adenopathy or JVD. Chest-equal and unlabored expansion bilaterally. Heart-rate 100-110 and regular. Objective Labs 09/24/23 18:24 09/24/23 18:24 Labs: Laboratory Results - last 24 hr 09/24/23 09/24/23 18:24 20:46 WBC 15.4 H RBC 4.45 Hgb 14.0 Hct 41.5 MCV 93.2 MCH 31.5 MCHC 33.8 RDW 13.6 Plt Count 317 Neut % (Auto) 95.1 H Lymph % (Auto) 4.1 L [place] % (Auto) 0.5 L Eos % (Auto) 0.2 L Baso % (Auto) 0.1 Neut # (Auto) 07452 H Lymph # (Auto) 600 L [place] # (Auto) 100 Eos # (Auto) 0 Baso # (Auto) 0 Sodium 136 L Potassium 3.9 Chloride 105 Carbon Dioxide 21 L BUN 16 Creatinine 0.74 Estimated GFR > 60 BUN/Creatinine Ratio 21.6 Glucose 98 Lactate 2.0 Calcium 9.8 Total Bilirubin 1.3 AST 34 ALT 19 Alkaline Phosphatase 81 Total Protein 8.2 Albumin 4.5 Globulin 3.7 Albumin/Globulin Ratio 1.2 Lipase 105 Procalcitonin 0.11 Urine RBC 10-30/hpf H Urine WBC 30-100/hpf H Ur Squamous Epith Cells 1-5 /hpf Urine Bacteria Many (>30) H Ur Culture Indicated? Cult not indicated PFSH Medical History Depression Thoracic back pain Surgical History History of meniscectomy of right knee History of delivery History of cholecystectomy Social History marital status: unmarried,living together number of children: 4 household members: spouse pets and animals: Yes occupational status: employed Safety seatbelt use: always do you feel safe at home: Yes Tobacco & Substance Use Smoking Status: Current some day smoker alcohol intake: never substance use type: does not use Additional Social History additional social history: from [place]. recently in [place]. [place] been [place] 40 yrs works at [employer] [facility]03/2023 Assessment & Plan Assessment and plan (1) Left ureteral stone: Status: Acute (2) Pyelonephritis: Problem details: Meets the criteria for sepsis Status: Acute (3) Left flank pain: Status: Acute Plan 1. Schedule CYSTOSCOPY/LEFT URETERAL STONE MANIPULATION WITHOUT REMOVAL/PLACEMENT LEFT URETERAL STENT today. 2. Follow-up on final urine culture and recommend to 4 weeks of appropriate culture directed antibiotic therapy. 3. Patient will benefit from staged left ureteroscopic laser lithotripsy-near future following satisfactory treatment of pyelonephritis. Reviewed findings, explained impression and rationale for above plan. She had no specific additional clarifying questions and indicates a desire to proceed as discussed. The common side effects, expectations, possible complications of planned intervention and future plan explained.
--- NOTE | 2023-09-25 08:27 | PC.NURSE ---
Day shift: IV Tylenol ordered for Pt. Per convo with Paul (Pharmacy) will not hang on ACU. Med to be given in surgery.
[2023-09-25 08:41] LABS: Add Manual Diff / Slide Review NO; Basophils Absolute Auto 0 /uL (0-100); Basophils Percent Auto 0.1 % (0-2); Eosinophils Absolute Auto 0 /uL (0-450); Eosinophils Percent Auto 0.1 % (2-4); Hematocrit 36.5 % (36-46); Hemoglobin 12.4 g/dL (12.0-16.0); Lymphocytes Absolute Auto 700 /uL (1100-4500); Lymphocytes Percent Auto 2.9 % (25-40); Mean Corpuscular HGB Conc 34.1 % (30-36); Mean Corpuscular Hemoglobin 31.9 PG (26-34); Mean Corpuscular Volume 93.6 fL (80-100); Monocytes Absolute Auto 1200 /uL (0-900); Monocytes Percent Auto 5.4 % (3-14); Neutrophils Absolute Auto 20500 /uL (1500-7000); Neutrophils Percent Auto 91.5 % (50-75); Platelet Count 253 X10^3/uL (150-400); Red Cell Distribution Width 13.7 % (11.6-14.8); White Blood Cell Count 22.4 X10^3/uL (4.5-11.0)
[2023-09-25 08:56] LABS: Magnesium 1.7 mg/dL (1.6-2.3)
[2023-09-25 08:57] LABS: BUN Creatinine Ratio 18.8 (6-22); Blood Urea Nitrogen 13 mg/dL (7-17); Calcium 8.8 mg/dL (8.4-10.2); Carbon Dioxide 23 mmol/L (22-32); Chloride 105 mmol/L (98-107); Estimated Glomerular Filt Rate > 60 mL/min (>60); Glucose 119 mg/dL (70-100); HEMOLYSIS < 15 (0-50); Potassium 3.4 mmol/L (3.4-5.1); Sodium 135 mmol/L (137-145)
[2023-09-25] MEDS: HYDROMORPHONE 0.5 MG INJ IV (09:18)
[2023-09-25 09:27] LABS: TSH w/ Reflex to FT4 0.71 uIU/mL (0.47-4.68)
[2023-09-25] MEDS: POTASSIUM CHLORIDE 20 MEQ TAB 40 MEQ PO (12:07)
[2023-09-25] MEDS: buPROPion SR 100 MG TAB PO ×2 (12:07→20:29)
[2023-09-25] MEDS: MAGNESIUM CHLORIDE 64 MG TABLET 128 MG PO (12:07)
--- NOTE | 2023-09-25 12:43 | PM.HP.1 ---
History of Present Illness History of Present Illness Chief complaint: kidney stone/pyelo Narrative: 48 years old female with history of hypertension, hyperlipidemia, hypothyroidism, depression, diabetes mellitus type 2, presented to the ER with left lower back/flank pain since this morning. Denies any fever, nausea, vomiting or dysuria. Never had the symptoms before. In the ER she was found to have kidney stones and was decided to admit for further management. In the ER she was given ceftriaxone 2 g IV, Toradol, Dilaudid and fluids. Initial labs shows WBC 15.4, H&H 11.3,/33.9, platelets 389, creatinine 0.74, lactic acid 1.5, blood glucose 98, UA positive for UTI. Abdominal CT scan shows 4 mm proximal left ureteral stone causing moderate left hydronephrosis. Bilateral nonobstructive renal calculi. [facility] Medical History Depression Thoracic back pain Surgical History History of meniscectomy of right knee History of delivery History of cholecystectomy Social History marital status: unmarried,living together number of children: 4 household members: spouse pets and animals: Yes occupational status: employed seatbelt use: always do you feel safe at home: Yes Smoking Status: Current some day smoker alcohol intake: never substance use type: does not use additional social history: from [place]. recently in [place]. Family [place] been [place] 40 yrs works at [employer]03/2023 [facility] Home Medications and Allergies Home Medications Medication Instructions Recorded Confirmed Type atorvastatin 40 mg tablet (Lipitor) 40 mg PO BEDTIME #90 tabs 11/20/22 09/24/23 Rx bupropion HCl 100 mg tablet,12 hr 100 mg PO Q12H #90 ea 06/03/23 09/24/23 Rx sustained-release conj estrogen-medroxyprogesterone 1 tab PO DAILY #90 tabs 07/04/23 09/24/23 Rx 0.3 mg-1.5 mg tablet (Prempro) levothyroxine 175 mcg capsule 175 mcg PO DAILY #90 caps 07/04/23 09/24/23 Rx tirzepatide 15 mg/0.5 mL 15 mg (0.5 mL) SUBCUT QWEEK #2 mL 07/30/23 09/24/23 Rx subcutaneous pen injector lisinopril 20 1 tab PO DAILY #90 tabs 08/06/23 09/24/23 Rx mg-hydrochlorothiazide 12.5 mg tablet Allergies Allergy/AdvReac Type Severity Reaction Status Date / Time No Known Drug Allergies Allergy Verified 06/21/23 16:22 Review of Systems Review of Systems ROS: Yes All systems reviewed with the patient and are negative except as otherwise documented Constitutional Constitutional: Reports as per HPI and Reports system reviewed and no additional complaints, except as documented Eyes Eyes: Reports as per HPI and Reports system reviewed and no additional complaints, except as documented ENT Ears, Nose, Mouth, and Throat: Yes as per HPI and Yes system reviewed and no additional complaints, except as documented Cardiovascular Cardiovascular: Reports system reviewed and no additional complaints, except as documented Respiratory Respiratory: Reports system reviewed and no additional complaints, except as documented Gastrointestinal Gastrointestinal: Reports system reviewed and no additional complaints, except as documented Genitourinary Genitourinary: Reports system reviewed and no additional complaints, except as documented Musculoskeletal Musculoskeletal: Reports system reviewed and no additional complaints, except as documented, Reports abnormal gait and Reports numbness Neurologic Neurologic: Reports system reviewed and no additional complaints, except as documented, Reports abnormal gait, Reports confusion and Reports numbness Psychiatric Psychiatric: Reports system reviewed and no additional complaints, except as documented and Reports confusion Exam Vital Signs (past 8 hours): - 09/25/23 05:00 09/25/23 06:00 09/25/23 08:00 Temperature 97.8 F 98.2 F 98.1 F Pulse Rate 113 H 120 H 109 H Respiratory Rate 16 16 18 Blood Pressure 102/65 100/56 L 96/55 L Pulse Oximetry 98 97 96 Oxygen Flow Rate 0 Oxygen Delivery Method Room Air Oxygen Flow Rate 0 Const General: cooperative, comfortable and well developed Orientation: alert and oriented x3 HENMT Head: normal to inspection, normocephalic and atraumatic Face and sinus: normal facial exam Mouth: oral mucosae normal and moist mucous membranes Throat: posterior oropharynx normal Eyes General: appearance normal, both eyes and all related structures Pupils: PERRL EOM: EOM intact bilaterally Neck Neck: normal visual inspection and full ROM Chest Chest: normal inspection of the chest Resp Effort & Inspection: normal respiratory effort and able to speak in complete sentences Auscultation: clear to auscultation bilaterally Cardio Palpation: normal PMI Rate: regular rate Rhythm: regular rhythm Heart Sounds: S1 normal and S2 normal GI Inspection: normal to inspection Palpation: soft and no hepatosplenomegaly Auscultation: normal bowel sounds Skin General: no rashes or lesions noted Lesions: no lesions Rashes: no rashes Trauma: no lacerations or abrasions Neuro General: patient alert, patient awake, patient oriented x3 and no focal motor deficits Cranial Nerves: CN's II-XI intact bilaterally Cognition: normal cognition Speech: speech normal Gait: normal gait Motor: muscle tone normal throughout Sensory Exam: no sensory deficits noted Extrem General: full ROM and no calf tenderness Psych Appearance: grossly normal Mental Status: mental status grossly normal Speech and Movement: speech and movement normal Objective Labs 09/25/23 08:11 09/25/23 08:11 Labs: Laboratory Results - last 24 hr 09/24/23 09/24/23 09/25/23 18:24 20:46 08:11 WBC 15.4 H 22.4 H RBC 4.45 3.90 L Hgb 14.0 12.4 Hct 41.5 36.5 MCV 93.2 93.6 MCH 31.5 31.9 MCHC 33.8 34.1 RDW 13.6 13.7 Plt Count 317 253 Neut % (Auto) 95.1 H 91.5 H Lymph % (Auto) 4.1 L 2.9 L [place] % (Auto) 0.5 L 5.4 Eos % (Auto) 0.2 L 0.1 L Baso % (Auto) 0.1 0.1 Neut # (Auto) 91610 H 81391 H Lymph # (Auto) 600 L 700 L [place] # (Auto) 100 1200 H Eos # (Auto) 0 0 Baso # (Auto) 0 0 Sodium 136 L 135 L Potassium 3.9 3.4 Chloride 105 105 Carbon Dioxide 21 L 23 BUN 16 13 Creatinine 0.74 0.69 Estimated GFR > 60 > 60 BUN/Creatinine Ratio 21.6 18.8 Glucose 98 119 H Lactate 2.0 Calcium 9.8 8.8 Magnesium 1.7 Total Bilirubin 1.3 AST 34 ALT 19 Alkaline Phosphatase 81 Total Protein 8.2 Albumin 4.5 Globulin 3.7 Albumin/Globulin Ratio 1.2 Lipase 105 Procalcitonin 0.11 TSH 0.71 Urine RBC 10-30/hpf H Urine WBC 30-100/hpf H Ur Squamous Epith Cells 1-5 /hpf Urine Bacteria Many (>30) H Ur Culture Indicated? Cult not indicated Assessment & Plan Assessment and plan (1) Left ureteral stone: Status: Acute Plan: IV fluids Pain medications and antiemetics as needed Urology consulted will have stent placed 09/25 (2) Pyelonephritis: Problem details: Meets the criteria for sepsis Status: Acute Plan: Continue ceftriaxone follow-up on the urine culture (3) Primary hypertension: Status: Acute Plan: Hold lisinopril for now Hydralazine as needed (4) Hyperlipidemia, mixed: Status: Acute Plan: Restart atorvastatin (5) Diabetes type 2, controlled: Qualifiers: Diabetes mellitus buttermaker insulin use: without buttermaker use Diabetes mellitus complication status: without complication Qualified Code(s): E11.9 - Type 2 diabetes mellitus without complications Status: Acute Plan: Monitor blood sugar ACHS SSI (6) Hypothyroidism (acquired): Status: Acute Plan: Restart levothyroxine (7) Depression, major: Qualifiers: Major depression recurrence: recurrent Active/Remission status: currently active Major depression episode severity: moderate Qualified Code(s): F33.1 - Major depressive disorder, recurrent, moderate Status: Acute Plan: Restart bupropion Plan Dispo: Pending stent placement and urine culture results. 1-2 days. Time Spent With Patient Time with patient: 50 to 69 minutes with 50% spent counseling/coordinating care Quality VTE Deep Vein Thrombosis/Pulmonary Embolism Present on Admission: No
--- NOTE | 2023-09-25 14:00 | CM.DANOTE ---
Reviewed EMR for pt's medical status and initial anticipated d/c needs. Met with pt at bedside to introduce self and role, pt was found to be alert and oriented, able to participated in this assessment visit. Payor: Grocio Attending: Dr. Ortega PCP: Ana Templeton Pt is a 48 year-old F who presented at the ED on 09/23/23 with left lower back/flank pain. CT imaging revealed a left ureteral stone, labs positive for UTI and sepsis. Pt was started on IV ABO's in the ED, consult was done with [facility]. Pt was then admitted with the plan for surgical intervention of a left-sided ureteral stent, a cystoscopy w/left ureteral stone manipulation w/o removal. Pt states that her friend from [employer] will be picking her up once medically cleared for d/c, however she will need a medical priority boarding pass [place] the ferry [place] return home. No further DCP needs identified at this time, will continue to monitor for post-surgical recommendations prior to d/c. Discharge Planning/Care Management CM Discharge Assessment Start: 09/25/23 13:53 Freq: Status: Active Protocol: Document 09/25/23 13:53 DPL (Rec: 09/25/23 13:56 DPL [id number]) Discharge Planning Assessment Assigned Sample Book Maker JOHN Kent Advance Directives? No History Provided By Medical Record Expected Length of Stay 3 Has Patient been admitted in last 30 No days? Prior Living Arrangements House Household Members spouse Type of transporation used prior to Drives own vehicle admit Independent with ADL's Yes Is patient alert and oriented? Yes Comment N/A Comment None Barriers to Discharge No Discharge Plan Home Transportation Arrangement Spouse Referrals Initiated None needed Review Status In Process Please Provide Date Initial DC 09/25/23 Assessment Was Performed
--- NOTE | 2023-09-25 14:35 | PC.NURSE ---
Day shift: Off unit for procedure at approx 1435.
--- NOTE | 2023-09-25 15:00 | SUR.OPER ---
Lithotomy on padded OR bed, head on pillow, arms secured on padded arm boards at <90 degrees abduction. Legs secured in padded yellow fins stirrups.
[2023-09-25] MEDS: LACTATED RINGERS 1,000 ML 42 ML IV (15:05)
[2023-09-25] MEDS: ACETAMINOPHEN 325 MG TABLET 975 MG PO (15:05)
--- NOTE | 2023-09-25 15:24 | PM.PREOP ---
Pre-operative Note Interval Note History & Physical reviewed/Exam performed by Physician: Yes Changes to H&P: No
--- NOTE | 2023-09-25 16:16 | PM.OP.1 ---
Operative Date/Time/Diagnoses Date of procedure: 09/25/23 Time of procedure: 16:16 Pre-op diagnosis: 1. Obstructing 4 mm left proximal ureteral calculus. 2. Left pyelonephritis. 3. Urosepsis. Procedure & Clinicians Procedure: 1. Cystoscopy/left ureteral stone manipulation without removal. 2. Cystoscopy/placement left ureteral stent (7 Ugandan by 22-32 cm multi-length). Same procedure as scheduled: Yes Indications: 1. Obstructing 4 mm left proximal ureteral calculus. 2. Left pyelonephritis. 3. Urosepsis. Surgeon: Omi Barber Click Yes if Unassisted: Yes Anesthesia Type: General Operative Notes Findings: 1. Urethra-normal caliber without lesion or mass. There was lost the UV angle associated with a grade 3 cystocele. 2. Bladder-trace trabeculation. Normal ureteral orifices bilaterally. However the bladder floor was greatly descended and rotated requiring digital/manual elevation of the bladder neck and trigone to visualized and access the ureteral orifice. Closure Type: not applicable Specimen(s): none sent Applied: other (Seven Ugandan by 22-32 cm multi-length stent) Estimated Blood Loss (mL): 0 Blood products transfused: none Procedure in detail: The patient was positioned in supine was administered general anesthesia. She was then repositioned in semi-lithotomy lower abdomen, genitalia, groin and vaginal vault were prepped and draped in sterile fashion. The 22 Ugandan panendoscope was then passed into the lower urinary tract with the findings as described above. A lubricated 30 cc syringe was then insinuated into the vaginal vault and the operating room surgical technician manually elevated as instructed to elevate the bladder neck and trigone in a position where the ureteral orifices could be visualized. Next, a 0.35 hybrid guidewire was advanced through a 5 Ugandan pollock ureteral catheter. Under direct visualization the tip of the hybrid guidewire was then advanced in the left ureteral orifice and then with guidance and stability provided by the 5 Ugandan pollock catheter the wire was advanced proximally under direct and fluoroscopic guidance. Now the Or[place]by catheter was backloaded off the hybrid guidewire. A 7 Ugandan by 22-32 cm multi-length stent was then selected. This was advanced over the hybrid guidewire under direct and fluoroscopic guidance. Satisfactory positioning of the proximal coil was confirmed fluoroscopically. NO RETRIEVAL LINE WAS LEFT ATTACHED. The bladder was then drained completely and the panendoscope was removed. The patient was repositioned in supine. The patient was then awakened, transferred to [facility], then transported recovery in stable condition. Complications: none Post-operative Condition: stable Disposition: PACU Plan for aftercare: 1. Admit to acute care. 2. Recommend full 2 week course of culture directed antibiotic therapy. 3. Schedule outpatient follow-up in the [facility] 2-3 weeks post discharge with KUB.
--- NOTE | 2023-09-25 16:30 | PC.NURSE ---
Day shift: Pt remains off unit at this time (1630). Not in room.
[2023-09-25] MEDS: HYDROMORPHONE 1 MG INJ IV (16:31)
[2023-09-25] MEDS: KETOROLAC 30 MG/ML VIAL IV (16:44)
--- NOTE | 2023-09-25 17:31 | PC.NURSE ---
Day shift: Back in room at approx 1715 from PACu. Sharmila area pain reported 11/23. VS WNL. 2L NC 98%. Agrees to not get OOB w/o help from staff. Call light in reach and bed alarm is on. Per Dr Valero Pt can be back on pre-op MEDS on the DEC. Asher in pharmacy aware and is making that happen. Ok for no IV fluids running at this time per Dr Valero. Will continue to monitor as post-op Pt.
[2023-09-25] MEDS: ATORVASTATIN 20 MG TABLET 40 MG PO (20:28)
[2023-09-25] MEDS: SODIUM CHLORIDE 0.9% FLUSH 10 ML IV (20:28)
[2023-09-26] VITALS: BP 110/66; PULSE 88; RESP 16; TEMP 36.6; O2SAT 97
[2023-09-26] MEDS: OXYCODONE IR 5 MG TABLET PO ×2 (02:38→05:51)
[2023-09-26 04:00] VITALS: BP 107/64; PULSE 74; RESP 16; TEMP 36.3; O2SAT 97
[2023-09-26] MEDS: LEVOTHYROXINE 100 MCG TABLET PO (05:48)
[2023-09-26] MEDS: LEVOTHYROXINE 75 MCG TABLET PO (05:48)
[2023-09-26 06:16] LABS: Add Manual Diff / Slide Review NO; Basophils Absolute Auto 0 /uL (0-100); Eosinophils Absolute Auto 0 /uL (0-450); Hematocrit 33.8 % (36-46); Hemoglobin 11.6 g/dL (12.0-16.0); Lymphocytes Absolute Auto 700 /uL (1100-4500); Lymphocytes Percent Auto 5.1 % (25-40); Mean Corpuscular HGB Conc 34.2 % (30-36); Mean Corpuscular Hemoglobin 32.1 PG (26-34); Mean Corpuscular Volume 93.8 fL (80-100); Monocytes Absolute Auto 500 /uL (0-900); Neutrophils Absolute Auto 12200 /uL (1500-7000); Neutrophils Percent Auto 90.9 % (50-75); Platelet Count 236 X10^3/uL (150-400); Red Blood Cell Count 3.61 X10^6/uL (4.0-5.2); Red Cell Distribution Width 13.8 % (11.6-14.8); White Blood Cell Count 13.5 X10^3/uL (4.5-11.0)
[2023-09-26 06:18] LABS: BUN Creatinine Ratio 27.3 (6-22); Blood Urea Nitrogen 15 mg/dL (7-17); Calcium 9.5 mg/dL (8.4-10.2); Carbon Dioxide 24 mmol/L (22-32); Chloride 106 mmol/L (98-107); Estimated Glomerular Filt Rate > 60 mL/min (>60); Glucose 152 mg/dL (70-100); HEMOLYSIS < 15 (0-50); Potassium 3.7 mmol/L (3.4-5.1); Sodium 136 mmol/L (137-145)
[2023-09-26] MEDS: DOCUSATE 100 MG CAPSULE PO (08:17)
[2023-09-26 08:18] VITALS: BP 136/78; PULSE 87
[2023-09-26] MEDS: lisinopriL 20 MG TABLET PO (08:18)
[2023-09-26] MEDS: buPROPion SR 100 MG TAB PO (08:18)
[2023-09-26] MEDS: hydroCHLOROthiazide 25 MG TABLET 12.5 MG PO (08:18)
[2023-09-26] MEDS: SODIUM CHLORIDE 0.9% FLUSH 10 ML IV (09:00)
[2023-09-26 09:02] VITALS: BP 136/76; PULSE 87; RESP 16; TEMP 36.2; O2SAT 97
[2023-09-26] MEDS: cefTRIAXone 2,000 MG in SODIUM CHLORIDE 0.9% 100 ML 200 MG IV (10:00)
--- NOTE | 2023-09-26 10:44 | PM.DS.1 ---
History of Present Illness History of Present Illness Date Patient Seen: 09/26/23 Time Patient Seen: 10:44 Chief complaint: kidney stone/pyelo Narrative: Per admitting provider, 48 years old female with history of hypertension, hyperlipidemia, hypothyroidism, depression, diabetes mellitus type 2, presented to the ER with left lower back/flank pain since this morning. Denies any fever, nausea, vomiting or dysuria. Never had the symptoms before. In the ER she was found to have kidney stones and was decided to admit for further management. In the ER she was given ceftriaxone 2 g IV, Toradol, Dilaudid and fluids. Initial labs shows WBC 15.4, H&H 11.3,/33.9, platelets 389, creatinine 0.74, lactic acid 1.5, blood glucose 98, UA positive for UTI. Abdominal CT scan shows 4 mm proximal left ureteral stone causing moderate left hydronephrosis. Bilateral nonobstructive renal calculi. Discharge Providers Provider Date of admission: 09/24/23 21:01 Discharge Date: 09/26/23 Primary care physician: Basil Bates MD Consults: 09/24/23 20:35 Consult to Urology Stat Comment: Consulting Provider: Omi Barber Reason for consultation: Ureteral stone with UTI Has provider been notified: Yes Discharge provider: Angel Menchaca DO Summary Hospital Course Discharge Diagnosis: #pyelonephritis secondary to obstructive nephrolithiasis with left hydronephrosis. #HTN, chronic #Hyperlipidemia, mixed: #Diabetes type 2, controlled: #Hypothyroidism (acquired): # Depression, major: Hospital Course: 48 years old female with history of hypertension, hyperlipidemia, hypothyroidism, depression, diabetes mellitus type 2, presented to the ER with left lower back/flank pain. She was found to have pyelonephritis with obstructing L ureteral stone and L hydronephrosis. Urology was consulted and placed a stent. With this she had rapid improvement. She was initially on ceftriaxone, with improvement in overall symptoms. The day after stent placement, she had minimal symptoms and was tolerating a diet and was afebrile and wished to discharge home. Urine culture showed E. coli, resistant to penicillins. She was discharged on oral cefdinir based on sensitivities and patient preference. No other changes to her home medications were recommended. She was continued on antiboitics for another 10 days after discharge. Blood cultures were negative. Time Spent with Patient Time spent: Greater than 30 minutes Exam Vital Signs (past 8 hours): - 09/26/23 04:00 09/26/23 08:18 09/26/23 09:02 Temperature 97.4 F L 97.2 F L Pulse Rate 74 87 87 Respiratory Rate 16 16 Blood Pressure 107/64 136/78 136/76 Pulse Oximetry 97 97 Oxygen Flow Rate 0 Oxygen Delivery Method Nasal Cannula Oxygen Flow Rate 0 Const General: cooperative, comfortable and well developed Orientation: alert and oriented x3 HENID Head: normal to inspection, normocephalic and atraumatic Face and sinus: normal facial exam Mouth: oral mucosae normal and moist mucous membranes Throat: posterior oropharynx normal Eyes General: appearance normal, both eyes and all related structures Pupils: PERRL EOM: EOM intact bilaterally Neck Neck: normal visual inspection and full ROM Chest Chest: normal inspection of the chest Resp Effort & Inspection: normal respiratory effort and able to speak in complete sentences Auscultation: clear to auscultation bilaterally Cardio Palpation: normal PMI Rate: regular rate Rhythm: regular rhythm Heart Sounds: S1 normal and S2 normal GI Inspection: normal to inspection Palpation: soft and no hepatosplenomegaly Auscultation: normal bowel sounds Skin General: no rashes or lesions noted Lesions: no lesions Rashes: no rashes Trauma: no lacerations or abrasions Neuro General: patient alert, patient awake, patient oriented x3 and no focal motor deficits Cranial Nerves: CN's II-XI intact bilaterally Cognition: normal cognition Speech: speech normal Gait: normal gait Motor: muscle tone normal throughout Sensory Exam: no sensory deficits noted Extrem General: full ROM and no calf tenderness Psych Appearance: grossly normal Mental Status: mental status grossly normal Speech and Movement: speech and movement normal Objective Labs 09/26/23 05:55 09/26/23 05:55 Labs: Laboratory Results - last 24 hr 09/26/23 05:55 WBC 13.5 H RBC 3.61 L Hgb 11.6 L Hct 33.8 L MCV 93.8 MCH 32.1 MCHC 34.2 RDW 13.8 Plt Count 236 Neut % (Auto) 90.9 H Lymph % (Auto) 5.1 L [place] % (Auto) 4.0 Eos % (Auto) 0.0 L Baso % (Auto) 0.0 Neut # (Auto) 77552 H Lymph # (Auto) 700 L [place] # (Auto) 500 Eos # (Auto) 0 Baso # (Auto) 0 Sodium 136 L Potassium 3.7 Chloride 106 Carbon Dioxide 24 BUN 15 Creatinine 0.55 Estimated GFR > 60 BUN/Creatinine Ratio 27.3 H Glucose 152 H Calcium 9.5 PFSH Medical History Depression Thoracic back pain Surgical History History of meniscectomy of right knee History of delivery History of cholecystectomy Social History marital status: unmarried,living together number of children: 4 household members: spouse pets and animals: Yes occupational status: employed seatbelt use: always do you feel safe at home: Yes Smoking Status: Current some day smoker alcohol intake: current substance use type: does not use additional social history: from [place]. recently in [place]. Family has been on [place] for 40 yrs works at [employer] [facility]03/2023 Discharge Plan Discharge Plan Patient Disposition: Home Provider Discharge Comment: You were admitted to the hospital with an infected kidney stone. Complete 2 weeks total of antibiotics at home. Urology clinic should call you with a follow up for stone and stent removal in the future. Discharge orders & Medications Prescriptions: New oxycodone 5 mg Tablet 5 mg PO Q6HR PRN (Reason: Pain, Moderate (4-6)) 7 Days Qty: 15 0RF cefdinir 300 mg capsule 300 mg PO BID 10 Days Qty: 20 0RF Continued atorvastatin [Lipitor] 40 mg tablet 40 mg PO BEDTIME Qty: 90 3RF bupropion HCl 100 mg tablet sustained-release 12 hr 100 mg PO Q12H Qty: 90 1RF tirzepatide 15 mg/0.5 mL pen injector 15 mg SUBCUT QWEEK Qty: 2 5RF lisinopril-hydrochlorothiazide 20-12.5 mg tablet 1 tab PO DAILY Qty: 90 1RF Prempro 0.3-1.5 mg tablet 1 tab PO DAILY Qty: 90 1RF levothyroxine 175 mcg capsule 175 mcg PO DAILY Qty: 90 0RF Follow up/Referrals: Paulo,Basil A, MD [Primary Care Provider] - Diet/Activity/Treatments Diet: Diet as Tolerated and Regular Activity: As tolerated, no restrictions Visit Report/Discharge Packet Instructions: Cystoscopy, DI for Cystoscopy, DI for Prescription Opioid Use Stand Alone Forms: Patient Portal/API, Stroke Signs & Symptoms, Surgery Discharge Discharge Data Primary Care Provider: Basil Bates VTE Deep Vein Thrombosis/Pulmonary Embolism Present on Admission: No
--- NOTE | 2023-09-26 11:36 | PC.NURSE ---
Day shift: RN Jen Day went over discharge instructions with patient. All questions answered, patient stated understanding. PIV d/c'ed prior to discharge. All belongings with patient. PCT Mikala escorted patient via wheelchair to main entrance for discharge. Medical priority ferry pass given to patient for priority boarding on [place]do [place] approved.
--- NOTE | 2023-09-26 14:22 | CM.DPC ---
DCP Discharge Home Per MD, pt is medically stable to d/c home today with no identified barriers to discharge. Per RN, discharge instructions provided along with priority boarding pass for the ferry back to [place] and no needs or concerns identified. Plan: Patient discharged home via friend POV back to [facility] and outpt f/u and no further SW needs at this time. JOHN Dunlap
== END 2023-09-26 11:41 | disposition home or self-care (01) | DRG 463 ==
LOC: ED 20:58 → AC 21:02
PROVIDERS: Specialist; Student in an Organized Health Care Education/Training Program; Admitting Provider Internal Medicine; Emergency Provider Emergency Medicine; PCP Family Medicine; Referring Provider Emergency Medicine; Visit Provider Internal Medicine
PROC: 0T778DZ Dilation of Left Ureter with Intraluminal Device, Via Natural or Artificial Opening Endoscopic (ICD-10-PCS; principal; 2023-09-25 15:30)
DX: N13.6 Pyonephrosis (principal); F33.0 Major depressive disorder, recurrent, mild; I10 Essential (primary) hypertension; E78.5 Hyperlipidemia, unspecified; E11.9 Type 2 diabetes mellitus without complications; E03.9 Hypothyroidism, unspecified; B96.20 Unspecified Escherichia coli [E. coli] as the cause of diseases classified elsewhere; Z79.890 Hormone replacement therapy
CPT/HCPCS: 36415; 52330; 52332; 74018; 74177; 76000; 80048; 80053; 81002; 81003; 81015; 82962; 83605; 83690; 83735; 84145; 84443; 85025; 87040; 87077; 87086; 87186; 96365; 96375; 99222; 99284; J0696; J1100; J1170; J1885; J2250; J2405; J2704; J3010; Q9967

== ENCOUNTER → 2023-10-08 10:56 | Outpatient (CLI) | payer OTHER, MEDICAID, SELFPAY ==
[2023-09-24 22:28] VITALS: BMI 35.6
--- NOTE | 2023-10-08 10:59 | DI.RAD.S_ITS ---
PROCEDURE: XR KUB INDICATIONS: Left ureteral stone TECHNIQUE: One view of the abdomen acquired. COMPARISON: [facility], CR, XR KUB, 09/25/2023, 7:49. FINDINGS: Surgical changes and devices: Left ureteral stent. Right upper quadrant surgical clips. Bowel: Bowel gas pattern is normal. Soft tissues: No left renal calcifications are seen. Redemonstration of small calcifications projecting over the right kidney. Visualized solid organ contours appear normal in size. Bones: No suspicious bony lesions. IMPRESSION: Left ureteral stent in place. No left sided calcifications are identified. Small right-sided calcifications are redemonstrated. Dictated by: Hasmukh Pettit M.D. on 10/09/2023 at 8:29 Approved by: Hasmukh Pettit M.D. on 10/09/2023 at 8:31
== END ==
PROVIDERS: PCP Family Medicine; Referring Provider Specialist; Visit Provider Specialist
DX: N20.1 Calculus of ureter (principal); R31.9 Hematuria, unspecified; R10.9 Unspecified abdominal pain; Z96.0 Presence of urogenital implants
CPT/HCPCS: 74018

== ENCOUNTER → 2023-10-08 13:23 | Outpatient (CLI) | payer OTHER, MEDICAID, SELFPAY ==
[2023-09-24 22:28] VITALS: BMI 35.6
== END ==
PROVIDERS: PCP Family Medicine; Visit Provider Specialist
DX: N12 Tubulo-interstitial nephritis, not specified as acute or chronic (principal); R31.9 Hematuria, unspecified; N20.1 Calculus of ureter; N81.9 Female genital prolapse, unspecified; R10.9 Unspecified abdominal pain; Z96.0 Presence of urogenital implants; Z87.440 Personal history of urinary (tract) infections
CPT/HCPCS: 74018; 81002; 87086; 99215

== ENCOUNTER → 2023-10-17 12:51 | Outpatient (CLI) | payer OTHER, MEDICAID, SELFPAY ==
[2023-09-24 22:28] VITALS: BMI 35.6
== END ==
PROVIDERS: PCP Family Medicine; Visit Provider Physician Assistant Medical
DX: T83.84XA Pain due to genitourinary prosthetic devices, implants and grafts, initial encounter (principal); Z87.440 Personal history of urinary (tract) infections
CPT/HCPCS: 81002; 87086

== ENCOUNTER → 2023-10-22 10:57 | Outpatient (CLI) | payer OTHER, MEDICAID, SELFPAY ==
[2023-09-24 22:28] VITALS: BMI 35.6
--- NOTE | 2023-10-22 10:58 | DI.CT.S_ITS ---
PROCEDURE: CT KIDNEY URETER BLADDER (KUB) INDICATIONS: placement Left urethral stent, check Left urethral stone TECHNIQUE: Axial sections were acquired from the lung bases to the pubic symphysis. Coronal and sagittal reformats were performed. For radiation dose reduction, the following was used: automated exposure control, adjustment of mA and/or kV according to patient size. COMPARISON: [facility], CT, CT ABDOMEN PELVIS W CON, 09/24/2023, 19:23. FINDINGS: Image quality: Diagnostic. Lower Chest: Stable 4 mm pleural-based right lower lobe nodule. Lung bases are otherwise clear. Small hiatal hernia. Heart size is normal. URINARY: Right Kidney: No hydronephrosis. No perinephric stranding. Faint hyperdensities of the right renal calices. Nonobstructing right renal stones measuring up to 4 mm in size. Right Ureter: Right ureter is normal in course and caliber. No ureteral stone. No periureteral stranding. Left Kidney/ureter: Double-J left ureteral stent is in place. Proximal pigtail catheter is visualized within the left renal pelvis. Distal portion of the pigtail catheter is seen in the urinary bladder. There is mild persistent left perinephric stranding. Mild left hydronephrosis. Previously seen 4 mm proximal left ureteral stone is now visualized more distally within the left mid ureter. No significant hydroureter. Mild periureteral stranding. Bladder: Normal wall thickness. No stones. No perivesicular stranding. ABDOMEN: Liver: No contour-deforming solid mass. Gallbladder: Status post cholecystectomy. Biliary ducts: No biliary dilation. Pancreas: No ductal dilation. Spleen: Size is within normal limits. Adrenal Glands: No adrenal nodules. Stomach and Bowel: Normal colonic caliber, without significant wall thickening. Scattered colonic diverticula without acute inflammation. Peritoneum: No abnormal intraperitoneal fluid. No free air. Ventral Wall: No hernia. Abdominal Nodes: No enlarged retroperitoneal or mesenteric lymph nodes. Vessels: Aorta and inferior vena cava are normal in size. PELVIS: Pelvic Organs: Unremarkable. Pelvic Nodes: Unremarkable. Miscellaneous: No inguinal hernias are seen. Bones: Visualized osseous structures appear intact without acute fracture or focal destructive lesion. No acute compression fractures of the imaged spine. IMPRESSION: 1. Interval placement of double-J left ureteral stent which appears to be appropriately positioned. Previously described 4 mm proximal left ureteral stone has migrated a short distance to the mid left ureter. There is mild persistent left hydronephrosis. There is left periureteral and perinephric stranding. Recommend clinical /laboratory correlation to exclude possible underlying concurrent infectious uropathy. 2. Bilateral nonobstructive renal calculi. 3. Other chronic findings as above. Dictated by: Reji Katz M.D. on 10/22/2023 at 14:56 Approved by: Reji Katz M.D. on 10/22/2023 at 15:11
== END ==
LOC: CT 10:58
PROVIDERS: PCP Family Medicine; Referring Provider Specialist; Visit Provider Specialist
DX: N13.30 Unspecified hydronephrosis (principal); N20.2 Calculus of kidney with calculus of ureter; Z96.0 Presence of urogenital implants
CPT/HCPCS: 74176

== ENCOUNTER → 2023-10-25 08:29 | Outpatient (CLI) | payer OTHER, MEDICAID, SELFPAY ==
[2023-09-24 22:28] VITALS: BMI 35.6
[2023-10-30 09:34] LABS: Appearance Urine UA CLOUDY; Bilirubin Urine UA NEGATIVE (NEGATIVE); Color Urine UA RED; Glucose Urine UA NEGATIVE (Negative); Ketones Urine UA NEGATIVE (NEGATIVE); Leukocyte Esterase Urine UA 2+ (NEGATIVE); Nitrite Urine UA NEGATIVE (Negative); Occult Blood Urine UA 2+ (Negative); Protein Urine UA 3+ (Negative); Specific Gravity Urine UA 1.025 (1.000-1.035); Urobilinogen Urine UA 0.2 E.U./dL (0.2)
[2023-10-30 10:10] LABS: Bacteria Urine Few (2-10); Culture Indicated Urine Specimen Cultured; RBC Urine >100/HPF (0-5/HPF); Squamous Epithelial Cell Urine 0-1 /HPF (0-5/HPF); WBC Urine 10-30/HPF (0-5/HPF)
== END ==
PROVIDERS: Specialist; PCP Family Medicine; Visit Provider Physician Assistant Medical
DX: W50.3XXA Accidental bite by another person, initial encounter (principal); S20.129A Blister (nonthermal) of breast, unspecified breast, initial encounter
CPT/HCPCS: 81001; 87070; 87075; 87086; 87205

== ENCOUNTER 2023-11-11 06:12 | Day surgery (SDC) | payer OTHER, MEDICAID, SELFPAY ==
[2023-09-24 22:28] VITALS: BMI 35.6
[2023-11-06 07:57] VITALS: BMI 35.7
[2023-11-11] VITALS (10 sets, daily range): BP systolic 122–147; BP diastolic 82–98; PULSE 96–117; RESP 12–18; TEMP 36.2–37.1; O2SAT 93–100; BMI 33.9
[2023-11-11] MEDS: LACTATED RINGERS 1,000 ML 21 ML IV ×2 (06:51→10:38)
[2023-11-11] MEDS: ACETAMINOPHEN IV 1,000 MG/100 ML VIAL 400 MG IV (06:55)
--- NOTE | 2023-11-11 07:45 | PM.PREOP ---
Pre-operative Note Interval Note History & Physical reviewed/Exam performed by Physician: Yes Changes to H&P: No
[2023-11-11] MEDS: CIPROFLOXACIN 400 MG/200 ML PIGGYBACK 200 MG IV (07:52)
--- NOTE | 2023-11-11 08:32 | SUR.OPER ---
Lithotomy on padded OR bed, head on pillow, arms secured on padded arm boards at <90 degrees abduction. Legs secured in padded yellow fins stirrups.
--- NOTE | 2023-11-11 10:34 | P.OP_ITS ---
Operative Date/Time/Diagnoses Date of procedure: 11/11/23 Time of procedure: 10:25 Pre-op diagnosis: 1. Left mid ureteral calculus. 2.Retained left ureteral stent. 3. History of urosepsis. Post-op diagnosis: same Procedure & Clinicians Procedure: 1. Cystoscopy/left ureteroscopic laser lithotripsy (complexity modifier indicated due to case complexity and length of case greater than 150% expected close ( 2. Cystoscopy/left ureteral stent exchange (6 Venezuelan by 22-32 cm multi-length). Same procedure as scheduled: Yes Indications: 1. Left mid ureteral calculus. 2. Retained left ureteral stent. 3. History of urosepsis. Surgeon: Omi Barber Click Yes if Unassisted: Yes Anesthesia Type: General Operative Notes Closure Type: not applicable Specimen(s): other (Stone fragments) Applied: other (6 Venezuelan by 22-32 cm multi-length.) Estimated Blood Loss (mL): 2 Blood products transfused: none Procedure in detail: The patient was positioned in supine was administered general anesthesia she was then repositioned in semi lithotomy in the lower abdomen, genitalia, and groin were then prepped and draped in sterile fashion. The 22 Venezuelan panendoscope was then advanced lower urinary tract with findings significant of left periureteral edema and erythema as well as calculus encrustation of the distal coil. The alligator tooth foreign body grasper was then used to engage the distal end of the stent and gently withdrawn to the exterior. The distal coil was at the meatus. It was apparent then that the stent was engaged with the ureter due to probable proximal encrustations. A 0.35 hybrid guidewire was then advanced through the lumen of the existing indwelling stent but could not be advanced due to encrustations of the lumen. The panendoscope was reintroduced and the 0.35 hybrid guidewire was then advanced under direct and fluoroscopic guidance rolando sow with a coil positioned within the intrarenal collecting system. The panendoscope was then backloaded off the ureteral guidewire. The ureteral guidewire was secured to the surgical drape. The semi-rigid ureteral scope was then advanced in the lower urinary tract and then advanced proximally under direct And fluoroscopic guidance. ial encrustations were visualized. A 200 micron laser fiber was requested and all operating room personnel and patient were fitted with laser safety eyewear. Lithotripsy was then commenced and the encrustations were painstakingly lasered from the outer surface of the stent beginning most distally and gradually advancing proximally. The midportion of the stent was relatively free of material but at the proximal coil again dense encrustations were encounter. Again these were painstakingly lasered off the surface of the stent. Using hydrostatic and mechanical forces the tiny fragments were gently migrated distally. At approximately the level of the left iliac vasculature the index calculus was encountered. Laser lithotripsy was then employed. The stone responded well to the dusting mode. Again, gentle mechanical agitation by movement of the semi-rigid ureteral scope and hydrostatic mechanism via the pressure ice fluid a considerable amount of calculus material was encouraged toward the distal ureter. At this time the dusting mode was again used on a collection of fragments and using the same hydrostatic and mechanical means the material was cleared from the distal most portion of the ureter. The semi-rigid ureteral scope was then reintroduced in the ureter and advanced to the level of the UPJ without evidence of retained stone or stone fragments. The semi-rigid ureteroscope was then removed from the urinary tract. The panendoscope was front loaded on the hybrid ureteral guidewire. A 6 Venezuelan by 22-32 cm multi-length ureteral stent was then advanced over the hybrid guidewire and positioned satisfactorily in the left upper collecting system under direct and fluoroscopic guidance. A RETRIEVAL LINE WAS LEFT ATTACHED. The bladder was then drained completely and the panendoscope was removed. The retrieval line was trimmed to an appropriate length a proximally 5 cm distal to the urethral meatus. The patient was then repositioned in supine, was awakened, then transported recovery in stable condition. Complications: none Post-operative Condition: stable Plan for aftercare: 1. Discharge home. 2. Schedule in office left ureteral stent removal via retrieval line in 5 days.
[2023-11-11] MEDS: HYDROMORPHONE 1 MG INJ IV ×2 (10:45→10:50)
[2023-11-11 10:48] LABS: Bilirubin Urine UA NEGATIVE (NEGATIVE); Glucose Urine UA NEGATIVE (Negative); Ketones Urine UA NEGATIVE (NEGATIVE); Leukocyte Esterase Urine UA 1+ (NEGATIVE); Nitrite Urine UA NEGATIVE (Negative); Occult Blood Urine UA 3+ (Negative); Protein Urine UA 3+ (Negative); Specific Gravity Urine UA 1.015 (1.000-1.035); Urobilinogen Urine UA 0.2 E.U./dL (0.2)
[2023-11-11] MEDS: OXYCODONE IR 5 MG TABLET PO (10:51)
[2023-11-11 10:52] LABS: Appearance Urine UA CLOUDY; Color Urine UA RED
[2023-11-11 10:53] LABS: Bacteria Urine Many (>30); Culture Indicated Urine Specimen Cultured; RBC Urine >100/HPF (0-5/HPF); Squamous Epithelial Cell Urine None Seen (0-5/HPF); Urine Volume 10mL (spun); WBC Urine 0-1/HPF (0-5/HPF)
[2023-11-11] MEDS: LORazepam 2 MG/ML INJ 0.25 MG IV (10:53)
[2023-11-11] MEDS: FUROSEMIDE 40 MG/4 ML VIAL 20 MG IV (10:55)
[2023-11-19 19:16] LABS: Ca oxalate monohydr 30 % (.); CaHPO4 (Brushite) 30 % (.); Hydroxyapatite 40 % (.)
== END 2023-11-11 11:55 | disposition home or self-care (01) ==
PROVIDERS: PCP Family Medicine; Referring Provider Specialist; Visit Provider Specialist
PROC: (CPT 52356; principal; 2023-11-11 07:45)
DX: N20.1 Calculus of ureter (principal); T83.84XD Pain due to genitourinary prosthetic devices, implants and grafts, subsequent encounter; I10 Essential (primary) hypertension; E66.9 Obesity, unspecified; Z68.34 Body mass index [BMI] 34.0-34.9, adult; F17.290 Nicotine dependence, other tobacco product, uncomplicated; Z96.0 Presence of urogenital implants; Z87.440 Personal history of urinary (tract) infections
CPT/HCPCS: 52356; 76000; 81001; 82365; 87086; J0136; J0330; J0744; J1100; J1170; J1940; J2060; J2250; J2405; J2704; J3010

== ENCOUNTER → 2023-12-02 12:37 | Outpatient (CLI) | payer OTHER, MEDICAID, SELFPAY ==
[2023-09-24 22:28] VITALS: BMI 35.6
--- NOTE | 2023-12-02 12:39 | DI.MG.S_ITS ---
BILATERAL DIGITAL DIAGNOSTIC MAMMOGRAM 3D/2D: 12/02/2023 CLINICAL: Right breast recurring skin lesion. Comparison is made to exams dated: 09/13/2022 mammogram - [facility], 05/26/2019 mammogram, and 08/22/2016 mammogram - outside location. Both breasts are almost entirely fatty (category a/<25% glandular tissue). No significant masses, calcifications, or other findings are seen in either breast. Specifically, no finding to explain the patient's skin lesion. Bilateral surgical smith and coarse calcifications are present. Mammograms are otherwise stable. IMPRESSION: INCOMPLETE: NEEDS ADDITIONAL IMAGING EVALUATION Mammograms are stable. There is no abnormality seen in the right breast to correspond with the skin lesion at 7 o'clock in the anterior depth. Ultrasound is recommended for full evaluation of this area. This was performed immediately following this exam. Based on the Tyrer Cuzick model (a risk assessment model) the patient's lifetime risk is 5.9% and her 10 year risk is 1.4%. According to the ACR, ACS, and NCCN guidelines, an annual breast MRI exam along with mammogram is recommended if the patient's lifetime risk is 20% or greater. This exam was interpreted at Station ID: [id number]. NOTE: For mammograms, a report in lay terms will be sent to the patient. Approximately 15% of breast malignancies will not be visualized mammographically. In the management of a palpable breast mass, a negative mammogram must not discourage biopsy of a clinically suspicious lesion. Electronically Signed By: Heather hutchinson/:12/02/2023 14:24:41 ACR BI-RADS Category 0: Incomplete [id number]
--- NOTE | 2023-12-02 12:39 | DI.US.S_ITS ---
LIMITED ULTRASOUND OF RIGHT BREAST: 12/02/2023 CLINICAL: Open sore. Comparison is made to exams dated: 12/02/2023 mammogram, 09/13/2022 mammogram - [facility], and 05/26/2019 mammogram - outside [facility]. Ultrasound of the right breast 7 o'clock region was performed. Zuniga scale images of the real-time examination were reviewed. No significant abnormalities were seen sonographically in the right breast. Specifically, no finding to correspond to the skin lesion. IMPRESSION: NEGATIVE There is no sonographic correlate in the breast to the patient's skin lesion and no evidence of malignancy. Return to annual mammogram screening schedule is recommended. Findings and recommendations were conveyed to the patient at time of exam. This exam was interpreted at Station ID: [id number]. Electronically Signed By: Heather hutchinson/:12/02/2023 15:12:46 letter sent: Normal Exam Ultrasound BI-RADS: 1 Negative
== END ==
PROVIDERS: PCP Family Medicine; Referring Provider Family Medicine; Visit Provider Family Medicine
DX: R92.2 Inconclusive mammogram (principal); S20.121A Blister (nonthermal) of breast, right breast, initial encounter
CPT/HCPCS: 76642; 77066; G0279

== ENCOUNTER → 2024-03-18 13:12 | Outpatient (CLI) | payer OTHER, MEDICAID, SELFPAY ==
[2023-09-24 22:28] VITALS: BMI 35.6
[2024-03-18 20:18] LABS: Add Manual Diff / Slide Review NO; Basophils Absolute Auto 0 /uL (0-100); Basophils Percent Auto 0.3 % (0-2); Eosinophils Absolute Auto 300 /uL (0-450); Eosinophils Percent Auto 3.6 % (2-4); Hemoglobin 13.9 g/dL (12.0-16.0); Lymphocytes Absolute Auto 2100 /uL (1100-4500); Lymphocytes Percent Auto 24.4 % (25-40); Mean Corpuscular HGB Conc 33.9 % (30-36); Mean Corpuscular Hemoglobin 31.3 PG (26-34); Mean Corpuscular Volume 92.4 fL (80-100); Monocytes Absolute Auto 700 /uL (0-900); Monocytes Percent Auto 8.3 % (3-14); Neutrophils Absolute Auto 5300 /uL (1500-7000); Neutrophils Percent Auto 63.4 % (50-75); Platelet Count 360 X10^3/uL (150-400); Red Blood Cell Count 4.44 X10^6/uL (4.0-5.2); Red Cell Distribution Width 14.1 % (11.6-14.8); White Blood Cell Count 8.4 X10^3/uL (4.5-11.0)
[2024-03-18 20:23] LABS: Hemoglobin A1C% w Est Avg Glu 5.2 % (4.0-6.0)
[2024-03-18 20:30] LABS: Cholesterol 173 mg/dL (140-199); HDL Cholesterol 58 mg/dL (40-60); LDL Cholesterol Calculated 97 mg/dL (<100); Triglycerides 91 mg/dL (35-150)
[2024-03-18 22:07] LABS: Creatinine Urine Random 128.16 mg/dL
[2024-03-18 22:10] LABS: Microalbumin Urine Random 5.6 mg/dL (0-1.6)
== END ==
PROVIDERS: PCP Family Medicine; Visit Provider Family Medicine
DX: E11.9 Type 2 diabetes mellitus without complications (principal); I10 Essential (primary) hypertension; E03.9 Hypothyroidism, unspecified; E78.2 Mixed hyperlipidemia; Z68.41 Body mass index [BMI] 40.0-44.9, adult
CPT/HCPCS: 80061; 82043; 82570; 83036; 84443; 85025

== ENCOUNTER → 2024-04-21 10:44 | Outpatient (CLI) | payer BC, OTHER, MEDICAID, SELFPAY ==
[2023-09-24 22:28] VITALS: BMI 35.6
== END ==
PROVIDERS: PCP Family Medicine; Visit Provider Physician Assistant
DX: R30.0 Dysuria (principal)
CPT/HCPCS: 80305; 81002; 87077; 87086; 87186

== ENCOUNTER → 2024-07-29 15:03 | Outpatient (CLI) | payer BC, OTHER, MEDICAID, SELFPAY ==
[2023-09-24 22:28] VITALS: BMI 35.6
== END ==
PROVIDERS: PCP Family Medicine; Visit Provider Physician Assistant
DX: R10.9 Unspecified abdominal pain (principal)
CPT/HCPCS: 87086

== ENCOUNTER → 2024-12-14 12:00 | Outpatient (CLI) | payer BC, OTHER, SELFPAY ==
[2023-09-24 22:28] VITALS: BMI 35.6
== END ==
PROVIDERS: PCP Family Medicine; Visit Provider Family Medicine
DX: R10.9 Unspecified abdominal pain (principal)
CPT/HCPCS: 87086

== ENCOUNTER → 2025-01-08 09:49 | Outpatient (CLI) | payer BC, OTHER, SELFPAY ==
[2023-09-24 22:28] VITALS: BMI 35.6
[2025-01-08 19:42] LABS: Add Manual Diff / Slide Review NO; Basophils Absolute Auto 0 /uL (0-100); Basophils Percent Auto 0.4 % (0-2); Eosinophils Absolute Auto 100 /uL (0-450); Eosinophils Percent Auto 1.7 % (2-4); Hematocrit 40.6 % (36-46); Hemoglobin 13.8 g/dL (12.0-16.0); Lymphocytes Absolute Auto 1800 /uL (1100-4500); Lymphocytes Percent Auto 28.5 % (25-40); Mean Corpuscular HGB Conc 33.9 % (30-36); Mean Corpuscular Hemoglobin 31.6 PG (26-34); Monocytes Absolute Auto 600 /uL (0-900); Monocytes Percent Auto 9.7 % (3-14); Neutrophils Absolute Auto 3700 /uL (1500-7000); Neutrophils Percent Auto 59.7 % (50-75); Platelet Count 307 X10^3/uL (150-400); Red Blood Cell Count 4.36 X10^6/uL (4.0-5.2); Red Cell Distribution Width 13.5 % (11.6-14.8); White Blood Cell Count 6.3 X10^3/uL (4.5-11.0)
[2025-01-08 19:48] LABS: BUN Creatinine Ratio 23.1 (6-22); Blood Urea Nitrogen 15 mg/dL (7-17); Calcium 10.1 mg/dL (8.4-10.2); Carbon Dioxide 26 mmol/L (22-32); Chloride 103 mmol/L (98-107); Cholesterol 146 mg/dL (140-199); Estimated Glomerular Filt Rate > 60 mL/min (>60); Glucose 90 mg/dL (70-100); HDL Cholesterol 48 mg/dL (40-60); HEMOLYSIS < 15 (0-50); LDL Cholesterol Calculated 85 mg/dL (<100); Potassium 3.9 mmol/L (3.4-5.1); Sodium 140 mmol/L (137-145); Triglycerides 63 mg/dL (35-150)
[2025-01-08 19:49] LABS: Hemoglobin A1C% w Est Avg Glu 4.8 % (4.0-6.0)
[2025-01-08 20:21] LABS: Creatinine Urine Random 174.94 mg/dL
[2025-01-08 20:21] LABS: TSH w/ Reflex to FT4 < 0.02 uIU/mL (0.47-4.68)
[2025-01-08 20:28] LABS: Microalbumin Urine Random 0.9 mg/dL (0-1.6)
[2025-01-08 20:49] LABS: Free T4, Direct Thyroxine 2.51 ng/dL (0.78-2.19)
== END ==
PROVIDERS: PCP Family Medicine; Visit Provider Family Medicine
DX: E11.9 Type 2 diabetes mellitus without complications (principal); E78.2 Mixed hyperlipidemia; E03.9 Hypothyroidism, unspecified; I10 Essential (primary) hypertension
CPT/HCPCS: 80048; 80061; 82043; 82570; 83036; 84439; 84443; 85025

== ENCOUNTER → 2025-02-11 10:14 | Outpatient (CLI) | payer BC, OTHER, SELFPAY ==
[2023-09-24 22:28] VITALS: BMI 35.6
== END ==
PROVIDERS: PCP Family Medicine; Visit Provider Physician Assistant Medical
DX: J02.9 Acute pharyngitis, unspecified (principal)
CPT/HCPCS: 87070

== ENCOUNTER → 2025-05-05 08:29 | Outpatient (CLI) | payer BC, OTHER, SELFPAY ==
[2023-09-24 22:28] VITALS: BMI 35.6
== END ==
PROVIDERS: PCP Family Medicine; Visit Provider Physician Assistant Medical
DX: N30.01 Acute cystitis with hematuria (principal); R30.9 Painful micturition, unspecified
CPT/HCPCS: 87077; 87086; 87186